=== PATIENT | female | born 1975 | race Caucasian/White ===

== ENCOUNTER 2020-05-04 21:17 | Emergency (ER) | payer MEDICARE, MEDICAID, SELFPAY ==
[2020-05-04] VITALS (10 sets, daily range): BP systolic 112–156; BP diastolic 55–84; PULSE 73–80; RESP 15–22; TEMP 36.5–36.6; O2SAT 96–100; BMI 52.4
--- NOTE | 2020-05-04 21:19 | XR_ITS ---
EXAMINATION: XR SHOULDER, RIGHT CLINICAL INFORMATION: Fall and shoulder injury. COMPARISON: None TECHNIQUE: AP external rotation, Grashey, scapular Y, and axillary views of the right shoulder. FINDINGS: There is anterior inferior dislocation of humeral head in relation to glenoid. No visible fracture seen. The AC joint and rest of the visualized bones are grossly unremarkable. XR/XR shoulder RT min 2V IMPRESSION: Anterior-inferior right shoulder dislocation. No evidence of fracture.
--- NOTE | 2020-05-04 21:33 | ED.EXTPRO ---
HPI - Extremity Problem General Chief complaint: Extremity Injury, Upper Stated complaint: shoulder injury Time Seen by Provider: 05/04/20 21:32 Source: patient Mode of arrival: EMS Limitations: no limitations History of Present Illness HPI Narrative: 45-year-old female her leg gave out and patient fell her right arm got caught in the swing felt a pop in her right shoulder, patient appears to be an right shoulder dislocation, patient appears very uncomfortable. MD Complaint: extremity pain ( Right shoulder pain) Onset (ago): hour(s) (1) Pain Consistency: constant Location: right and upper extremity ( CC shoulder) Severity scale (1-10): >10 Quality: aching Radiation: none Exacerbating factors: range of motion Associated symptoms: denies other symptoms Related Data Allergies Allergy/AdvReac Type Severity Reaction Status Date / Time latex [LATEX] Allergy Unknown HIVES Unverified 03/29/20 16:06 Sulfa (Sulfonamide Allergy Unknown HIVES Unverified 03/29/20 16:06 Antibiotics) [SULFA (SULFONAMIDE ANTIBIOTICS)] LATEX Allergy Unknown hives Uncoded 07/31/15 00:00 latex Allergy Unknown Uncoded 03/04/16 00:00 sulfa Allergy Unknown hives Uncoded 07/31/15 00:00 Review of Systems Review of Systems: all other systems are reviewed and are negative Constitutional: Reports as per HPI and Reports no additional constitutional complaints Eyes: Reports as per HPI and Reports no additional eye complaints Reports system reviewed and no additional complaints, except as documented Cardiovascular: Reports as per HPI and Reports no additional cardiovascular complaints Respiratory: Reports as per HPI and Reports no additional respiratory complaints Gastrointestinal: Reports as per HPI and Reports no additional gastrointestinal complaints Genitourinary: Reports no additional female genitourinary complaints Musculoskeletal: Reports no additional musculoskeletal complaints Skin/Breast: Reports system reviewed and no additional complaints, except as docu Psychiatric: Reports no additional psychiatric complaints Endocrine: Reports no additional endocrine complaints Hematologic/Lymphatic: Reports no additional hematologic/lymphatic complaints Allergic/Immunologic: Reports no additional allergic/immunologic complaints Reports system reviewed and no additional complaints, except as documented and Reports Abnormal speech present [facility] Past Medical History Medical History Bipolar 1 disorder Social History Social History Alcohol intake: never Smoking Status: Current every day smoker Use of substances other than those prescribed or required for medical reasons: No Physical Exam Vital Signs: Vital Signs: Vital Signs Temp Pulse Resp BP Pulse Ox 05/04/20 22:04 22 H 05/04/20 21:24 97.8 F 77 20 143/62 H 97 Body Mass Index 52.4 vital signs have been reviewed as normal and appeared to be correct. Blood pressure is slightly high probably secondary to pain.. Heart rate normal. Respiration rate normal. Temperature normal. Oxygen saturation normal. Appearance: Alert. Oriented X3. No acute distress. Head: Normal external exam. Normocephalic. Atraumatic. No Naranjo signs noted. No raccoon eyes noted Eyes: PERRLA. EOMI. Conjunctiva and sclera normal. Eyelids normal. ENT: EAC normal. TM's Normal. Pharynx normal. Uvula midline. Moist mucous membranes. No trismus noted. No drooling noted. No muffled voice noted. Neck: Normal inspection. Neck supple. FROM. No adenopathy. Thyroid Normal. No meningeal signs. No neck mass noted. CVS: Normal heart rate and rhythm. Heart sound normal. No murmurs noted. Pulses normal throughout. Respiratory: No respiratory distress. Painless inspiration. Breath sounds normal. No wheezes/rales/rhonchi noted. Chest nontender. No accessory muscle usage noted or decreased air movement noted. Abdomen: Soft and nontender. Bowel sounds normal in all 4 quadrants. No distention noted. No organomegaly noted. No visible injury noted. Back: No CVA tenderness. Full range of motion noted. Skin: Skin warm and dry. Normal skin color. Normal skin turgor. No rashes/lesions/lacerations noted. Extremities: Right shoulder held in abduction position with limited abduction, with fullness anteriorly, neurovascular exam is intact. Neuro: Oriented X 3. No motor deficit. No sensory deficit. Reflexes normal. Course Course Course Narrative: 45-year-old female status post mechanical fall and right shoulder dislocation as a result for ears Obtain x-ray, likely shoulder dislocation, will perform conscious sedation, and attempt to do right shoulder reduction. Procedures Orthopedic Joint Reduction Joint #1: Time Out Performed: Yes Side: right Joint Reduction Location: shoulder Analgesia: procedural sedation Amount of anesthesic used (mL): 20 Shoulder Technique Used (if applicable): traction/counter-traction Post-reduction neuro exam: intact Post-reduction vascular: intact Post Reduction X-Ray Obtained: Yes Post Reduction X-Ray Results: reduced Splint Applied: Yes Patient Tolerated Procedure: well Procedural Sedation Indication: fracture/dislocation reduction ( right shoulder dislocation) ASA Class: I Time of Last PO Intake: 18:00 Preparation: night monitor applied, pulse oximeter, capnometry used, supplemental O2 applied, suction/airway equipment at bedside and IV secured IV Propofol dose (mg): 20 Patient Tolerated Procedure: well and no complications Complications: none MDM - Extremity (Nontraumatic) MDM Narrative Medical decision making narrative: 45-year-old female otherwise healthy had a mechanical fall causing right shoulder dislocation, patient status post shoulder reduction (with multiple trial) with conscious sedation procedure used. patient was observed in the emergency department for 60 minutes post conscious sedation, patient remained stable, with stable vital signs. Critical Care Time Critical Care Time Critical Care Time: Yes Total Critical Care Time: 60 Attestation: I spent 60 minutes critical care level care for this patient, care was provided at bedtime for continuous cardiac monitoring for conscious sedation, and 3 attempts to reduce the right shoulder, check radiographic studies, recheck on the patient, with cardiac monitoring. Discharge Plan Discharge Clinical Impression: Dislocated shoulder Qualifiers: Encounter type: initial encounter Laterality: right Qualified Code(s): S43.004A - Unspecified dislocation of right shoulder joint, initial encounter Patient Disposition: Home, Self-Care Instructions: Shoulder Dislocation (ED) Referrals: Tyrone Rouse MD [Physician] - 10 days
--- NOTE | 2020-05-04 22:03 | XR_ITS ---
EXAMINATION: XR SHOULDER, RIGHT CLINICAL INFORMATION: Post reduction COMPARISON: Early right shoulder exam 9:24 PM TECHNIQUE: AP external rotation, Grashey, scapular Y, and axillary views of the right shoulder. FINDINGS: There is persistent Anterior inferior dislocation of humeral head in relation to glenoid. There is no visible fracture. The soft tissues are normal. The AC joint appears unremarkable XR/XR shoulder RT 1V IMPRESSION: No change in anterior inferior dislocation of right shoulder. No fracture seen
[2020-05-04] MEDS: Morphine Sulfate 4 MG/ML CARTRIDGE IVPUSH (22:04)
[2020-05-04] MEDS: propofoL 200 MG/20 ML VIAL 100 MG IVPUSH ×4 (22:04→23:08)
--- NOTE | 2020-05-04 22:28 | XR_ITS ---
EXAMINATION: XR SHOULDER, RIGHT CLINICAL INFORMATION: Status post reduction. COMPARISON: None TECHNIQUE: AP right shoulder 10:27 PM. AP right shoulder 10:36 PM. FINDINGS: AP right shoulder 10:27 PM. There is persistent anteroinferior dislocation right humeral head in relation to glenoid. No fracture seen. AP right shoulder 10:36 PM: Status post reduction of the glenohumeral joint space is in alignment. No fracture seen. There is mild periapical spurring of AC joint. The soft tissues are normal. XR/XR shoulder RT 1V IMPRESSION: Last right shoulder AP view reveals normal alignment of right glenohumeral joint status post reduction. No fracture seen. Mild degenerative arthritis right AC joint is noted.
--- NOTE | 2020-05-04 22:38 | XR_ITS ---
EXAMINATION: XR SHOULDER, RIGHT CLINICAL INFORMATION: Status post reduction. COMPARISON: None TECHNIQUE: AP right shoulder 10:27 PM. AP right shoulder 10:36 PM. FINDINGS: AP right shoulder 10:27 PM. There is persistent anteroinferior dislocation right humeral head in relation to glenoid. No fracture seen. AP right shoulder 10:36 PM: Status post reduction of the glenohumeral joint space is in alignment. No fracture seen. There is mild periapical spurring of AC joint. The soft tissues are normal. XR/XR shoulder RT 1V IMPRESSION: Last right shoulder AP view reveals normal alignment of right glenohumeral joint status post reduction. No fracture seen. Mild degenerative arthritis right AC joint is noted.
== END 2020-05-04 23:50 | disposition home or self-care (01) ==
LOC: HO.ED 05-05 00:38
PROVIDERS: Emergency Provider Emergency Medicine
DX: S43.004A Unspecified dislocation of right shoulder joint, initial encounter (principal); X50.1XXA Overexertion from prolonged static or awkward postures, initial encounter; Y93.89 Activity, other specified; Y92.830 Public park as the place of occurrence of the external cause; Y99.9 Unspecified external cause status
CPT/HCPCS: 23655; 73020; 73030; 96374; 96375; 96376; 99152; 99284; 99291; J2270

== ENCOUNTER → 2020-05-11 11:29 | Outpatient (BNVA) | payer MEDICARE, MEDICAID, SELFPAY | PROVIDERS: PCP Nurse Practitioner Family; Visit Provider Orthopaedic Surgery | DX: S43.004D Unspecified dislocation of right shoulder joint, subsequent encounter (principal) | CPT/HCPCS: 99202 ==

== ENCOUNTER → 2020-05-25 10:49 | Outpatient (BNVA) | payer MEDICARE, MEDICAID, SELFPAY | PROVIDERS: Visit Provider Orthopaedic Surgery | DX: S43.004D Unspecified dislocation of right shoulder joint, subsequent encounter (principal) | CPT/HCPCS: 99212 ==

== ENCOUNTER 2020-06-26 17:21 | Emergency (ER) | payer MEDICARE, MEDICAID, SELFPAY ==
[2020-06-26 17:26] VITALS: BP 157/88; PULSE 90; RESP 18; TEMP 36.7; O2SAT 95; BMI 52.6
[2020-06-26 17:40] LABS: MANUAL DIFF FLAG NO
[2020-06-26 17:53] LABS: Basophils Absolute Auto 0.1 X10*3/uL (0.0-0.2); Basophils Percent Auto 0.5 % (0-2); Eosinophils Absolute Auto 0.3 X10*3/uL (0.0-0.4); Eosinophils Percent Auto 2.5 % (0-4); Hemoglobin 10.6 g/dl (12.0-16.0); Imm Gran Abs Auto 0.05 X10*3/uL (0.00-0.03); Imm Gran Pct Auto 0.5 % (0.0-0.4); Lymphocytes Absolute Auto 2.7 X10*3/uL (1.2-4.9); Lymphocytes Percent Auto 27.2 % (20-40); Mean Corpuscular HGB Conc 31.2 g/dl (31.0-35.0); Mean Corpuscular Hemoglobin 27.9 pg (27.0-33.0); Mean Corpuscular Volume 89.5 fL (80-98); Mean Platelet Volume 9.3 fL (9.4-12.3); Monocytes Absolute Auto 0.6 X10*3/uL (0.1-1.2); Monocytes Percent Auto 6.3 % (2-11); Neutrophils Absolute Auto 6.3 X10*3/uL (2.0-8.3); Platelet Count 275 X10*3/uL (160-400); Red Cell Distribution Width 14.7 % (11.0-16.0); White Blood Count 9.9 X10*3/uL (4.8-10.8)
[2020-06-26 18:13] LABS: Anion Gap 10 (12-20); Blood Urea Nitrogen 11 mg/dL (9-16); Calcium 8.2 mg/dL (8.4-10.2); Carbon Dioxide 25 mmol/L (22-29); Chloride 107 mmol/L (96-108); Creatinine Clr Calc Pharmacy 146.5; Estimated Glomerular Filt Rate > 60; Glucose Random 109 mg/dL (60-115); Potassium 3.9 mmol/l (3.3-5.1); Sodium 138 mmol/L (135-145)
--- NOTE | 2020-06-26 19:05 | ED.SKABFB ---
HPI - Skin/Abscess/Foreign Bdy General Chief complaint: Skin/Abscess/Foreign Body Stated complaint: INFECTION IN LEG Time Seen by Provider: 06/26/20 19:05 Source: patient Mode of arrival: ambulatory Limitations: no limitations History of Present Illness HPI narrative: Patient with history of recurrent cellulitis left leg last 1 was few months ago came here for couple of days of redness getting worse now started seeping serous fluid, patient denies any fever/chills complaint: rash Onset (ago): day(s) (3-4days) Location: LLE Related Data Home Medications Medication Instructions Recorded Confirmed amitriptyline 75 mg tablet 75 mg PO DAILY 05/11/20 aripiprazole 2 mg tablet 2 mg PO DAILY 05/11/20 sertraline 100 mg tablet 100 mg PO DAILY 05/11/20 Previous Rx's Medication Instructions Recorded naproxen 500 mg tablet 500 mg PO BID #60 tab 05/16/20 oxycodone 5 mg tablet 5 mg PO Q12H PRN #14 tab 06/12/20 cephalexin [Keflex] 500 mg PO QID 10 Days #40 cap 06/26/20 doxycycline hyclate 100 mg PO BID 10 Days #20 tab 06/26/20 Allergies Allergy/AdvReac Type Severity Reaction Status Date / Time latex [LATEX] Allergy Unknown HIVES Unverified 03/29/20 16:06 Sulfa (Sulfonamide Allergy Unknown HIVES Unverified 03/29/20 16:06 Antibiotics) [SULFA (SULFONAMIDE ANTIBIOTICS)] LATEX Allergy Unknown hives Uncoded 07/31/15 00:00 latex Allergy Unknown Uncoded 03/04/16 00:00 sulfa Allergy Unknown hives Uncoded 07/31/15 00:00 Review of Systems Review of Systems: REVIEW OF SYSTEMS: Pertinent positives and negatives are stated above in the history. GEN: no fevers, chills, fatigue HEENT: no nasal congestion, sore throat, ear pain NEURO: no headache, dizziness, focal weakness PULM: no cough, shortness of breath CV: no chest pain, palpitations, LE edema ABD: no abdominal pain, nausea, vomiting, diarrhea : no dysuria, urgency, frequency SKIN: Erythema left leg ROS otherwise negative x 10 PMFSH Past Medical History Medical History Bipolar 1 disorder Surgical History History of elbow surgery History of foot surgery History of tubal ligation History of umbilical hernia repair Social History Social History Alcohol intake: never Smoking Status: Current every day smoker Advance Directives: No Advance Directives Information Provided: Yes Current occupational status: unemployed Current occupation: right handed Physical Exam Vital Signs: Vital Signs: Last Vital Signs Temp 98.1 F 06/26/20 17:26 Pulse 90 06/26/20 17:26 Resp 18 06/26/20 17:26 BP 157/88 H 06/26/20 17:26 Pulse Ox 95 06/26/20 17:26 Body Mass Index 52.6 Appearance: Alert. Oriented X3. No acute distress. Eyes: Pupils equal, round and reactive to light. ENT: Pharynx normal. Neck: Normal inspection. Neck supple. CVS: Normal heart rate and rhythm. Pulses normal. Respiratory: No respiratory distress. Breath sounds normal. Abdomen: Soft and nontender. Skin: Skin warm and dry. Normal skin color. Normal skin turgor. Extremities: No lower extremity edema. Good range of movement Neuro: Oriented X 3. No motor deficit. No sensory deficit. MDM - Skin/Abscess/Foreign Bdy Lab Data Result diagrams: 06/26/20 17:36 06/26/20 17:36 Labs: Lab Results 06/26/20 06/26/20 06/26/20 Range/Units 17:36 17:36 17:36 WBC 9.9 (4.8-10.8) X10*3/uL RBC 3.80 L (4.20-5.50) X10*6/uL Hgb 10.6 L (12.0-16.0) g/dl Hct 34.0 L (37-47) % MCV 89.5 (80-98) fL MCH 27.9 (27.0-33.0) pg MCHC 31.2 (31.0-35.0) g/dl RDW 14.7 (11.0-16.0) % Plt Count 275 (160-400) X10*3/uL MPV 9.3 L (9.4-12.3) fL Immature Gran % (Auto) 0.5 H (0.0-0.4) % Neut % (Auto) 63.0 (45-73) % Lymph % (Auto) 27.2 (20-40) % [place] % (Auto) 6.3 (2-11) % Eos % (Auto) 2.5 (0-4) % Baso % (Auto) 0.5 (0-2) % Lymph # (Auto) 2.7 (1.2-4.9) X10*3/uL [place] # (Auto) 0.6 (0.1-1.2) X10*3/uL Eos # (Auto) 0.3 (0.0-0.4) X10*3/uL Baso # (Auto) 0.1 (0.0-0.2) X10*3/uL Abs Immat Gran (auto) 0.05 H (0.00-0.03) X10*3/uL Absolute Neuts (auto) 6.3 (2.0-8.3) X10*3/uL Absolute Nucleated RBC 0.000 (0.0-0.012) X10*3/uL Nucleated RBC % (auto) 0.0 (0.0-0.2) /100WBC Hold Purple Top SEE NOTE Hold Blue Top SEE NOTE Sodium (135-145) mmol/L Potassium (3.3-5.1) mmol/l Chloride (96-108) mmol/L Carbon Dioxide (22-29) mmol/L Anion Gap (12-20) BUN (9-16) mg/dL Creatinine (0.5-1.4) mg/dL Estim Creat Clear Calc Estimated GFR Random Glucose (60-115) mg/dL Calcium (8.4-10.2) mg/dL 06/26/20 Range/Units 17:36 WBC (4.8-10.8) X10*3/uL RBC (4.20-5.50) X10*6/uL Hgb (12.0-16.0) g/dl Hct (37-47) % MCV (80-98) fL MCH (27.0-33.0) pg MCHC (31.0-35.0) g/dl RDW (11.0-16.0) % Plt Count (160-400) X10*3/uL MPV (9.4-12.3) fL Immature Gran % (Auto) (0.0-0.4) % Neut % (Auto) (45-73) % Lymph % (Auto) (20-40) % [place] % (Auto) (2-11) % Eos % (Auto) (0-4) % Baso % (Auto) (0-2) % Lymph # (Auto) (1.2-4.9) X10*3/uL [place] # (Auto) (0.1-1.2) X10*3/uL Eos # (Auto) (0.0-0.4) X10*3/uL Baso # (Auto) (0.0-0.2) X10*3/uL Abs Immat Gran (auto) (0.00-0.03) X10*3/uL Absolute Neuts (auto) (2.0-8.3) X10*3/uL Absolute Nucleated RBC (0.0-0.012) X10*3/uL Nucleated RBC % (auto) (0.0-0.2) /100WBC Hold Purple Top Hold Blue Top Sodium 138 (135-145) mmol/L Potassium 3.9 (3.3-5.1) mmol/l Chloride 107 (96-108) mmol/L Carbon Dioxide 25 (22-29) mmol/L Anion Gap 10 L (12-20) BUN 11 (9-16) mg/dL Creatinine 0.71 (0.5-1.4) mg/dL Estim Creat Clear Calc 146.5 Estimated GFR > 60 Random Glucose 109 (60-115) mg/dL Calcium 8.2 L (8.4-10.2) mg/dL Discharge Plan Discharge Clinical Impression: Cellulitis of left leg Patient Disposition: Home, Self-Care Instructions: Cellulitis (ED) Additional Instructions: Keep the left leg elevated and take antibiotic as prescribed Report to the ER if worsening of the redness/fever Prescriptions: New cephalexin [Keflex] 500 mg capsule 500 mg PO QID 10 Days Qty: 40 RF: 0 doxycycline hyclate 100 mg tablet 100 mg PO BID 10 Days Qty: 20 RF: 0 No Action naproxen [Naprosyn] 500 mg tablet 500 mg PO BID Qty: 60 RF: 2 oxycodone 5 mg tablet 5 mg PO Q12H PRN (Reason: pain) Qty: 14 RF: 0
[2020-06-26] MEDS: cephALEXin 500 MG CAPSULE PO (19:22)
== END 2020-06-26 19:25 | disposition home or self-care (01) ==
PROVIDERS: Emergency Provider Internal Medicine
DX: L03.116 Cellulitis of left lower limb (principal); F17.200 Nicotine dependence, unspecified, uncomplicated; Z71.6 Tobacco abuse counseling; Z79.899 Other long term (current) drug therapy
CPT/HCPCS: 36415; 80048; 85025; 99283

== ENCOUNTER 2020-07-03 17:28 | Emergency (ER) | payer MEDICARE, MEDICAID, SELFPAY ==
[2020-07-03 17:50] VITALS: BP 171/103; PULSE 97; RESP 16; TEMP 36.9; O2SAT 97; BMI 52.4
== END 2020-07-03 20:31 | disposition left against medical advice (07) ==
PROVIDERS: Emergency Provider Emergency Medicine
DX: M79.606 Pain in leg, unspecified (principal)
CPT/HCPCS: 99281; 99282

== ENCOUNTER 2020-07-06 17:12 | Inpatient (IN) | payer MEDICARE, MEDICAID, SELFPAY ==
[2020-07-06 17:32] VITALS: BP 132/74; PULSE 85; RESP 16; TEMP 37.2; O2SAT 96; BMI 52.4
--- NOTE | 2020-07-06 18:38 | ED.GENADULT ---
HPI - General Adult General Chief complaint: General Medical Stated complaint: ?Leg infection Time Seen by Provider: 07/06/20 18:38 Source: patient Mode of arrival: ambulatory Limitations: no limitations History of Present Illness HPI narrative: 45-year-old female with past medical history that is significant for obesity, bipolar disorder with history of recurrent lower extremity cellulitis and surgical history of elbow surgery, foot surgery, tubal ligation, abdominal umbilical hernia repair who presents with complaint of worsening redness to the lower extremities. States she was seen here June 26 and given 10 day course of antibiotics she started the day after still has 1 more day left however her redness and swelling/weeping are continue to progress and get worse and has chills. Denies any fever. No URI symptoms. Review of EMR she was seen here June 26 started on 10 day course of Keflex and doxycycline Onset (ago): day(s) Severity: moderate Quality: aching Treatments prior to arrival: none Related Data Home Medications Medication Instructions Recorded Confirmed amitriptyline 75 mg tablet 75 mg PO DAILY 05/11/20 aripiprazole 2 mg tablet 2 mg PO DAILY 05/11/20 sertraline 100 mg tablet 100 mg PO DAILY 05/11/20 naproxen [Naprosyn] 500 mg PO BID PRN 07/06/20 Previous Rx's Medication Instructions Recorded cephalexin [Keflex] 500 mg PO QID 10 Days #40 cap 06/26/20 doxycycline hyclate 100 mg PO BID 10 Days #20 tab 06/26/20 Allergies Allergy/AdvReac Type Severity Reaction Status Date / Time latex [LATEX] Allergy Unknown HIVES Unverified 03/29/20 16:06 Sulfa (Sulfonamide Allergy Unknown HIVES Unverified 03/29/20 16:06 Antibiotics) [SULFA (SULFONAMIDE ANTIBIOTICS)] LATEX Allergy Unknown hives Uncoded 07/31/15 00:00 latex Allergy Unknown Uncoded 03/04/16 00:00 sulfa Allergy Unknown hives Uncoded 07/31/15 00:00 Review of Systems Review of Systems: Constitutional: No Weight loss, No Fever, + Chills, No Night Sweats, No Fatigue, No Malaise ENT/Mouth: No Hearing loss, No Ear Pain, No Nasal Congestion, No Sinus Pain, No Hoarseness, No sore throat, No Rhinorrhea, No Swallowing Difficulty Eyes: No Eye Pain, No Swelling, No Redness, No Foreign Body, No Discharge, No Vision Changes Cardiovascular: No Chest Pain, No SOB, No Dyspnea on Exertion, No Orthopnea, No Edema, No Palpitations Respiratory: No Cough, No Sputum, No Wheezing, No Smoke Exposure, No Dyspnea Gastrointestinal: No Nausea, No Vomiting, No Diarrhea, No Constipation, No abdominal Pain Genitourinary: no irregular bleeding, No Dysuria, No Urinary Frequency, No Hematuria, No Urinary Incontinence, No Urgency, No Flank Pain Musculoskeletal: No joint pain, No Myalgias, No Joint Swelling Skin: as noted in HPI Neuro: No Weakness, No Numbness, No Paresthesias, No Loss of Consciousness, No Dizziness, No Headache Psych: No Social Issues Heme/Lymph: No Bruising, No Bleeding,No Lymphadenopathy Endocrine: No Polyuria, No Polydipsia, No Temperature Intolerance Yes all other systems are reviewed and are negative [facility], [facility] Past Medical History Medical History Bipolar 1 disorder Surgical History History of elbow surgery History of foot surgery History of tubal ligation History of umbilical hernia repair Social History Social History Alcohol intake: never Smoking Status: Current every day smoker Use of substances other than those prescribed or required for medical reasons: No Advance Directives: No Advance Directives Information Provided: Yes Current occupational status: unemployed Current occupation: right handed Physical Exam Vital Signs: Vital Signs: Last Vital Signs Temp 98.9 F 07/06/20 17:32 Pulse 85 07/06/20 17:32 Resp 16 07/06/20 17:32 BP 132/74 07/06/20 17:32 Pulse Ox 96 07/06/20 17:32 Body Mass Index 52.4 Reviewed Const: General: cooperative and healthy appearing; No acute distress or intoxicated appearing Nutritional Appearance: average body habitus Orientation/consciousness: patient oriented x3 HENMT: Head: Yes normal to inspection Ears: hearing grossly normal bilaterally Eyes: General: appearance normal, both eyes and all related structures Visual Elliott: normal visual elliott by confrontation Neck: Neck: Yes normal visual inspection and No tender Thyroid: Thyroid normal Chest: Chest palpation & inspection: normal inspection of the chest Resp: Effort & Inspection: normal respiratory effort Cardio: Jugular venous distension: no JVD Rate: regular rate Rhythm: regular rhythm Heart sounds: S1 normal heart sound present and S2 normal heart sound present GI: Inspection: Yes normal to inspection Percussion: Yes normal to percussion Auscultation: normal bowel sounds : General: Yes no CVA tenderness Back/Spine/Pelvis: Back: no CVA tenderness Skin: General skin exam: no rashes or lesions noted Neuro: General: patient oriented x3 Extrem: Other: General: Yes normal to inspection Course Course Course Narrative: In brief 45-year-old female with above history presenting with worsening redness to the bilateral lower extremities left worse than right seen here ten days ago started on Keflex/doxycycline 1 more day left symptoms seem to be getting worse with chills and redness now extending into the groin area. Lab work shows no leukocytosis afebrile, not tachycardic. Electrolytes with no significant derangement. Given the failed p.o. antibiotics plan for admission. Patient given dose of Vanco and Zosyn here. Bilateral lower extremity ultrasounds are pending. Case discussed with hospitalist for admission. Consultations Consultation #1: Dr. Gutierrez hospitalist Medical Decision Making Lab Data Result diagrams: 07/06/20 18:58 07/06/20 18:58 Labs: Lab Results 07/06/20 07/06/20 Range/Units 18:58 18:58 WBC 9.9 (4.8-10.8) X10*3/uL RBC 3.68 L (4.20-5.50) X10*6/uL Hgb 10.4 L (12.0-16.0) g/dl Hct 32.7 L (37-47) % MCV 88.9 (80-98) fL MCH 28.3 (27.0-33.0) pg MCHC 31.8 (31.0-35.0) g/dl RDW 14.6 (11.0-16.0) % Plt Count 250 (160-400) X10*3/uL MPV 9.1 L (9.4-12.3) fL Immature Gran % (Auto) 0.4 (0.0-0.4) % Neut % (Auto) 62.5 (45-73) % Lymph % (Auto) 26.0 (20-40) % [place] % (Auto) 6.8 (2-11) % Eos % (Auto) 3.8 (0-4) % Baso % (Auto) 0.5 (0-2) % Lymph # (Auto) 2.6 (1.2-4.9) X10*3/uL [place] # (Auto) 0.7 (0.1-1.2) X10*3/uL Eos # (Auto) 0.4 (0.0-0.4) X10*3/uL Baso # (Auto) 0.1 (0.0-0.2) X10*3/uL Abs Immat Gran (auto) 0.04 H (0.00-0.03) X10*3/uL Absolute Neuts (auto) 6.2 (2.0-8.3) X10*3/uL Absolute Nucleated RBC 0.000 (0.0-0.012) X10*3/uL Nucleated RBC % (auto) 0.0 (0.0-0.2) /100WBC Lactic Acid 1.0 (0.5-2.0) mmol/L Discharge Plan Discharge Clinical Impression: Cellulitis of both lower extremities, Chronic venous stasis dermatitis Patient Disposition: Admitted As Inpatient Prescriptions: No Action naproxen [Naprosyn] 500 mg tablet 500 mg PO BID PRN (Reason: Pain) RF: 0 cephalexin [Keflex] 500 mg capsule 500 mg PO QID 10 Days Qty: 40 RF: 0 doxycycline hyclate 100 mg tablet 100 mg PO BID 10 Days Qty: 20 RF: 0
--- NOTE | 2020-07-06 18:47 | US_ITS ---
EXAMINATION: US VENOUS ULTRASOUND WITH DOPPLER LOWER EXTREMITY, BILATERAL CLINICAL INFORMATION: Pain swelling redness COMPARISON: Prior venous ultrasound August 2015 TECHNIQUE: Ultrasound of the deep veins is performed from the hip to the calf with compression sonography and color and pulse Doppler assessment. Spectral analysis with color-flow imaging is performed. FINDINGS: RIGHT: There is normal venous compression and respiratory variation and augmented flow. The visualized common femoral vein, superficial femoral vein, profunda femoral vein, popliteal vein, and the trifurcation region shows no evidence of deep venous thrombosis. Peroneal vein not visualized There is no significant popliteal fossa cyst. LEFT: There is normal venous compression and respiratory variation and augmented flow. The visualized common femoral vein, superficial femoral vein, profunda femoral vein, popliteal vein, and the trifurcation region shows no evidence of deep venous thrombosis. Peroneal vein not visualized There is no significant popliteal fossa cyst. If the patient's symptoms persist, followup ultrasound in 5 days 7 days might be of value to exclude proximal propagation from a non-visualized calf vein. US/US venous duplex LE BI IMPRESSION: No DVT demonstrated in the right and left lower extremity.
[2020-07-06 19:07] LABS: MANUAL DIFF FLAG NO
[2020-07-06 19:11] LABS: Basophils Absolute Auto 0.1 X10*3/uL (0.0-0.2); Basophils Percent Auto 0.5 % (0-2); Eosinophils Absolute Auto 0.4 X10*3/uL (0.0-0.4); Eosinophils Percent Auto 3.8 % (0-4); Hematocrit 32.7 % (37-47); Hemoglobin 10.4 g/dl (12.0-16.0); Imm Gran Abs Auto 0.04 X10*3/uL (0.00-0.03); Imm Gran Pct Auto 0.4 % (0.0-0.4); Lymphocytes Absolute Auto 2.6 X10*3/uL (1.2-4.9); Mean Corpuscular HGB Conc 31.8 g/dl (31.0-35.0); Mean Corpuscular Hemoglobin 28.3 pg (27.0-33.0); Mean Corpuscular Volume 88.9 fL (80-98); Mean Platelet Volume 9.1 fL (9.4-12.3); Monocytes Absolute Auto 0.7 X10*3/uL (0.1-1.2); Monocytes Percent Auto 6.8 % (2-11); Neutrophils Absolute Auto 6.2 X10*3/uL (2.0-8.3); Neutrophils Percent Auto 62.5 % (45-73); Platelet Count 250 X10*3/uL (160-400); Red Blood Count 3.68 X10*6/uL (4.20-5.50); Red Cell Distribution Width 14.6 % (11.0-16.0); White Blood Count 9.9 X10*3/uL (4.8-10.8)
[2020-07-06 19:32] LABS: Alanine Aminotransferase 43 U/L (0-31); Albumin Level 3.5 g/dL (3.5-5.0); Alkaline Phosphatase 88 U/L (39-117); Anion Gap 11 (12-20); Aspartate Amino Transferase 30 U/L (5-31); Bilirubin Total 0.3 mg/dL (0.0-1.0); Blood Urea Nitrogen 11 mg/dL (9-16); Calcium 8.1 mg/dL (8.4-10.2); Carbon Dioxide 25 mmol/L (22-29); Chloride 102 mmol/L (96-108); Creatinine Clr Calc Pharmacy 148.2; Estimated Glomerular Filt Rate > 60; Glucose Random 102 mg/dL (60-115); Potassium 3.8 mmol/l (3.3-5.1); Sodium 134 mmol/L (135-145)
[2020-07-06 19:36] LABS: COVID-19 Test Negative (Negative)
[2020-07-06] MEDS: Piperacillin Sodium/Tazobactam 4.5 GM in 0.9 % Sodium Chloride 100 ML IV (19:50)
--- NOTE | 2020-07-06 20:23 | PC.NURSE ---
PT WAS TAKEN TO US VIA W/C AND HOSPITALIST IN TO SEE PT. PT WILL BE ADMITTED FOR IV ANTIBIOTIC THERAPY.
[2020-07-06 21:22] LABS: Glucose Urine UA NEG (NEG); Leukocyte Esterase Urine NEG (NEG); Nitrite Urine NEG (NEG); Specific Gravity - Urine >= 1.030 (1.005-1.025); Urine Blood 2+ (NEG); Urine Ketones NEG (NEG); Urine Protein NEG (NEG-TRACE)
[2020-07-06 21:23] LABS: Appearance Urine CLEAR; Color Urine YELLOW
[2020-07-06 21:30] LABS: Squamous Epithelial Cell Urine 1+ /LPF; WBC Urine 0 /HPF (0-4)
--- NOTE | 2020-07-06 21:33 | PC.NURSE ---
pt left tibia and fibula fx reduced at bedside per dr glover. analysis consultant and sugar tong place to left leg repeat imaging ordered.
[2020-07-06 21:46] VITALS: BP 135/74; PULSE 78; RESP 16; TEMP 37.2; O2SAT 95
[2020-07-06 23:03] VITALS: BP 169/78; PULSE 75; RESP 18; TEMP 36.4; O2SAT 95
[2020-07-06] MEDS: 0.9 % Sodium Chloride Flush 3 ML SYRINGE IVFLUSH (23:12)
[2020-07-06] MEDS: Enoxaparin Sodium 40 MG/0.4 ML SYRINGE SUBCUT (23:12)
[2020-07-07] VITALS (10 sets, daily range): BP systolic 119–165; BP diastolic 56–87; PULSE 60–81; RESP 18–20; TEMP 36.1–36.7; O2SAT 93–97; BMI 52.4
[2020-07-07 06:00] LABS: MANUAL DIFF FLAG NO
[2020-07-07 06:04] LABS: Basophils Percent Auto 0.5 % (0-2); Eosinophils Absolute Auto 0.4 X10*3/uL (0.0-0.4); Eosinophils Percent Auto 4.5 % (0-4); Hematocrit 32.6 % (37-47); Hemoglobin 10.2 g/dl (12.0-16.0); Imm Gran Abs Auto 0.03 X10*3/uL (0.00-0.03); Imm Gran Pct Auto 0.4 % (0.0-0.4); Lymphocytes Absolute Auto 1.8 X10*3/uL (1.2-4.9); Lymphocytes Percent Auto 23.6 % (20-40); Mean Corpuscular HGB Conc 31.3 g/dl (31.0-35.0); Mean Corpuscular Hemoglobin 27.9 pg (27.0-33.0); Mean Corpuscular Volume 89.1 fL (80-98); Mean Platelet Volume 9.4 fL (9.4-12.3); Monocytes Absolute Auto 0.6 X10*3/uL (0.1-1.2); Monocytes Percent Auto 7.8 % (2-11); Neutrophils Absolute Auto 4.9 X10*3/uL (2.0-8.3); Neutrophils Percent Auto 63.2 % (45-73); Platelet Count 256 X10*3/uL (160-400); Red Blood Count 3.66 X10*6/uL (4.20-5.50); Red Cell Distribution Width 14.5 % (11.0-16.0); White Blood Count 7.8 X10*3/uL (4.8-10.8)
[2020-07-07 06:30] LABS: Anion Gap 12 (12-20); Blood Urea Nitrogen 8 mg/dL (9-16); Carbon Dioxide 24 mmol/L (22-29); Chloride 106 mmol/L (96-108); Creatinine Clr Calc Pharmacy 164.7; Estimated Glomerular Filt Rate > 60; Glucose Random 102 mg/dL (60-115); Magnesium 2.1 mg/dL (1.6-2.6); Potassium 3.9 mmol/l (3.3-5.1); Sodium 138 mmol/L (135-145)
--- NOTE | 2020-07-07 07:08 | P.HPHOSP_ITS ---
History of Present Illness Date of Service: 07/06/20 Chief Complaint: left lower extremity cellulitis This is a 45-year-old female with no significant past medical history who presents to the hospital with lower extremity cellulitis. Patient has history of venous stasis and reports that recurrent cellulitis of the left extremity. Patient presented to the ED last week and was treated with Keflex and doxycycline by her PCP and took it for 5 days with her symptoms including swelling, pain, and redness of her lower extremity worsening. Patient reports that left leg started to become red swollen and painful and then the right followed. She denies any fever or chills, no abdominal pain nausea or vomiting, no chest pain, no shortness of breath, no cough, no urinary symptoms, no numbness tingling or weakness. No headache or change in vision On arrival to the ED patient had dynamic least stable with no significant abnormal vitals Labs are significant for WBC count of 7.8, hemoglobin of 10.2, sodium of 138, potassium 3.9, BUN of 8, creatinine of 0.63, UA that is positive for blood, otherwise negative, COVID-19 negative. Duplex is negative for DVT Past medical history: cellulitis, bipolar disorder, Past surgical history: Cholecystectomy, elbow and feet surgery, stem cell stimulus of the back Family history: Heart disease Social history: Comes from home, denies any tobacco alcohol or illicit drugs Review of Systems Review of Systems: Yes all other systems are reviewed and are negative [facility] Medical History Bipolar 1 disorder Surgical History History of elbow surgery History of foot surgery History of tubal ligation History of umbilical hernia repair Social History Household Members: Spouse Housing: Apartment Do you presently have visiting nurse or other home services: No Alcohol intake: never Smoking Status: Current every day smoker Tobacco Type: Cigarette Packs Per Day: 0.5 Cigarettes Per Day: 10.0 Years Smoked: 20 Smoked in Last 30 Days: Yes Patient Interested in Nicotine Replacement: No Patient Given Instructions on How to Stop Smoking: No Second Hand Smoke Exposure: Yes Use of substances other than those prescribed or required for medical reasons: No Currently Displaying Signs/Symptoms of Drug Intoxication Withdrawal: No Any prior treatment program specific to substance use: No Have you been hit, kicked, punched, or otherwise hurt by someone within the past year? If so, by whom?: No Do you feel safe in your current relationship?: Yes Is there a partner from a previous relationship who is making you feel unsafe now?: No Are you made to feel afraid or neglected: No Advance Directives: No Advance Directives Information Provided: Yes Do you have thoughts of harming others: None Do you have a plan to hurt others: No Plan Recently lost weight without trying: No Current occupational status: unemployed Current occupation: right handed Meds Allergies Allergy/AdvReac Type Severity Reaction Status Date / Time latex [LATEX] Allergy Unknown HIVES Unverified 03/29/20 16:06 Sulfa (Sulfonamide Allergy Unknown HIVES Unverified 03/29/20 16:06 Antibiotics) [SULFA (SULFONAMIDE ANTIBIOTICS)] LATEX Allergy Unknown hives Uncoded 07/31/15 00:00 latex Allergy Unknown Uncoded 03/04/16 00:00 sulfa Allergy Unknown hives Uncoded 07/31/15 00:00 Home Medications Medication Instructions Recorded Confirmed Type amitriptyline 75 mg tablet 75 mg PO DAILY 05/11/20 History aripiprazole 2 mg tablet 2 mg PO DAILY 05/11/20 History sertraline 100 mg tablet 100 mg PO DAILY 05/11/20 History naproxen [Naprosyn] 500 mg PO BID PRN 07/06/20 History Physical Exam Vital Signs and Narrative: Vital Signs: Last Vital Signs Temp 97.9 F 07/07/20 03:34 Pulse 73 07/07/20 03:34 Resp 18 07/07/20 04:00 BP 157/87 H 07/07/20 03:34 Pulse Ox 95 07/07/20 03:34 Body Mass Index 52.4 Const: General: cooperative and no acute distress Orientation/consciousness: patient oriented x3 Eyes: General: appearance normal, both eyes and all related structures Resp: Effort & Inspection: normal respiratory effort and able to speak in complete sentences Cardio: Rate: regular rate Rhythm: regular rhythm GI: Palpation (GI): Soft to palpation Auscultation: normal bowel sounds Skin: General skin exam: no rashes or lesions noted Neuro: General: patient oriented x3 Cognition (Neuro): normal cognition Extrem: Other: Bilateral lower extremity edema, tenderness, edema 2+, has minimal drainage General: Yes normal to inspection Results Labs CBC and Chem 7: 07/07/20 05:23 07/07/20 05:23 Labs: Laboratory Results - last 24 hr 07/06/20 07/06/20 07/06/20 18:58 18:58 18:58 MCV 88.9 MCH 28.3 MCHC 31.8 RDW 14.6 Plt Count 250 MPV 9.1 L Immature Gran % (Auto) 0.4 Neut % (Auto) 62.5 Lymph % (Auto) 26.0 [place] % (Auto) 6.8 Eos % (Auto) 3.8 Baso % (Auto) 0.5 Lymph # (Auto) 2.6 [place] # (Auto) 0.7 Eos # (Auto) 0.4 Baso # (Auto) 0.1 Abs Immat Gran (auto) 0.04 H Absolute Neuts (auto) 6.2 Absolute Nucleated RBC 0.000 Nucleated RBC % (auto) 0.0 Anion Gap 11 L Estim Creat Clear Calc 148.2 Estimated GFR > 60 Random Glucose 102 Lactic Acid 1.0 Calcium 8.1 L Magnesium Total Bilirubin 0.3 AST 30 ALT 43 H Alkaline Phosphatase 88 Total Protein 7.0 Albumin 3.5 Urine Color Urine Appearance Urine pH Ur Specific [place] Urine Protein Urine Glucose (UA) Urine Ketones Urine Blood Urine Nitrite Ur Leukocyte Esterase Urine RBC Urine WBC Ur Squamous Epith Cells Urine Bacteria COVID-19 (LISANDRO) COVID-19 Clin Com 07/06/20 07/06/20 07/07/20 19:10 21:16 05:23 MCV 89.1 MCH 27.9 MCHC 31.3 RDW 14.5 Plt Count 256 MPV 9.4 Immature Gran % (Auto) 0.4 Neut % (Auto) 63.2 Lymph % (Auto) 23.6 [place] % (Auto) 7.8 Eos % (Auto) 4.5 H Baso % (Auto) 0.5 Lymph # (Auto) 1.8 [place] # (Auto) 0.6 Eos # (Auto) 0.4 Baso # (Auto) 0.0 Abs Immat Gran (auto) 0.03 Absolute Neuts (auto) 4.9 Absolute Nucleated RBC 0.000 Nucleated RBC % (auto) 0.0 Anion Gap Estim Creat Clear Calc Estimated GFR Random Glucose Lactic Acid Calcium Magnesium Total Bilirubin AST ALT Alkaline Phosphatase Total Protein Albumin Urine Color YELLOW Urine Appearance CLEAR Urine pH 6.0 Ur Specific [place] >= 1.030 H Urine Protein NEG Urine Glucose (UA) NEG Urine Ketones NEG Urine Blood 2+ H Urine Nitrite NEG Ur Leukocyte Esterase NEG Urine RBC 15-29 H Urine WBC 0 Ur Squamous Epith Cells 1+ Urine Bacteria NONE COVID-19 (LISANDRO) Negative COVID-19 Clin Com See Note 07/07/20 05:23 MCV MCH MCHC RDW Plt Count MPV Immature Gran % (Auto) Neut % (Auto) Lymph % (Auto) [place] % (Auto) Eos % (Auto) Baso % (Auto) Lymph # (Auto) [place] # (Auto) Eos # (Auto) Baso # (Auto) Abs Immat Gran (auto) Absolute Neuts (auto) Absolute Nucleated RBC Nucleated RBC % (auto) Anion Gap 12 Estim Creat Clear Calc 164.7 Estimated GFR > 60 Random Glucose 102 Lactic Acid Calcium 8.0 L Magnesium 2.1 Total Bilirubin AST ALT Alkaline Phosphatase Total Protein Albumin Urine Color Urine Appearance Urine pH Ur Specific [place] Urine Protein Urine Glucose (UA) Urine Ketones Urine Blood Urine Nitrite Ur Leukocyte Esterase Urine RBC Urine WBC Ur Squamous Epith Cells Urine Bacteria COVID-19 ([facility]ANDRO) COVID-19 Clin Com Imaging Radiologist's Impressions: Impressions Venous Duplex 07/06/20 18:47 IMPRESSION: No DVT demonstrated in the right and left lower extremity. Assessment and Plan (1) Cellulitis of both lower extremities: Status: Acute (2) Chronic venous stasis dermatitis: Status: Acute 45-year-old female who presents to the hospital with cellulitis # lower extremity cellulitis - Left worse than the right - patient failed outpatient therapy with doxycycline and Keflex Plan: - will start on vancomycin - follow cultures # bipolar disorder - continue home medications DVT prophylaxis:lovenox
--- NOTE | 2020-07-07 07:22 | P.HPHOSP_ITS ---
History of Present Illness Date of Service: 07/07/20 [facility] Medical History (Updated 07/07/20 @ 07:14 by Bennie Gutierrez MD) Bipolar 1 disorder Surgical History History of elbow surgery History of foot surgery History of tubal ligation History of umbilical hernia repair Social History Household Members: Spouse Housing: Apartment Do you presently have visiting nurse or other home services: No Alcohol intake: never Smoking Status: Current every day smoker Tobacco Type: Cigarette Packs Per Day: 0.5 Cigarettes Per Day: 10.0 Years Smoked: 20 Smoked in Last 30 Days: Yes Patient Interested in Nicotine Replacement: No Patient Given Instructions on How to Stop Smoking: No Second Hand Smoke Exposure: Yes Use of substances other than those prescribed or required for medical reasons: No Currently Displaying Signs/Symptoms of Drug Intoxication Withdrawal: No Any prior treatment program specific to substance use: No Have you been hit, kicked, punched, or otherwise hurt by someone within the past year? If so, by whom?: No Do you feel safe in your current relationship?: Yes Is there a partner from a previous relationship who is making you feel unsafe now?: No Are you made to feel afraid or neglected: No Advance Directives: No Advance Directives Information Provided: Yes Do you have thoughts of harming others: None Do you have a plan to hurt others: No Plan Recently lost weight without trying: No Current occupational status: unemployed Current occupation: right handed Meds Allergies Allergy/AdvReac Type Severity Reaction Status Date / Time latex [LATEX] Allergy Unknown HIVES Unverified 03/29/20 16:06 Sulfa (Sulfonamide Allergy Unknown HIVES Unverified 03/29/20 16:06 Antibiotics) [SULFA (SULFONAMIDE ANTIBIOTICS)] LATEX Allergy Unknown hives Uncoded 07/31/15 00:00 latex Allergy Unknown Uncoded 03/04/16 00:00 sulfa Allergy Unknown hives Uncoded 07/31/15 00:00 Home Medications Medication Instructions Recorded Confirmed Type amitriptyline 75 mg tablet 75 mg PO DAILY 05/11/20 History aripiprazole 2 mg tablet 2 mg PO DAILY 05/11/20 History sertraline 100 mg tablet 100 mg PO DAILY 05/11/20 History naproxen [Naprosyn] 500 mg PO BID PRN 07/06/20 History Physical Exam Vital Signs and Narrative: Vital Signs: Last Vital Signs Temp 97.9 F 07/07/20 03:34 Pulse 73 07/07/20 03:34 Resp 18 07/07/20 04:00 BP 157/87 H 07/07/20 03:34 Pulse Ox 95 07/07/20 03:34 Body Mass Index 52.4 Results Labs CBC and Chem 7: 07/07/20 05:23 07/07/20 05:23 Labs: Laboratory Results - last 24 hr 07/06/20 07/06/20 07/06/20 18:58 18:58 18:58 MCV 88.9 MCH 28.3 MCHC 31.8 RDW 14.6 Plt Count 250 MPV 9.1 L Immature Gran % (Auto) 0.4 Neut % (Auto) 62.5 Lymph % (Auto) 26.0 [place] % (Auto) 6.8 Eos % (Auto) 3.8 Baso % (Auto) 0.5 Lymph # (Auto) 2.6 [place] # (Auto) 0.7 Eos # (Auto) 0.4 Baso # (Auto) 0.1 Abs Immat Gran (auto) 0.04 H Absolute Neuts (auto) 6.2 Absolute Nucleated RBC 0.000 Nucleated RBC % (auto) 0.0 Anion Gap 11 L Estim Creat Clear Calc 148.2 Estimated GFR > 60 Random Glucose 102 Lactic Acid 1.0 Calcium 8.1 L Magnesium Total Bilirubin 0.3 AST 30 ALT 43 H Alkaline Phosphatase 88 Total Protein 7.0 Albumin 3.5 Urine Color Urine Appearance Urine pH Ur Specific [place] Urine Protein Urine Glucose (UA) Urine Ketones Urine Blood Urine Nitrite Ur Leukocyte Esterase Urine RBC Urine WBC Ur Squamous Epith Cells Urine Bacteria COVID-19 ([facility]ANDRO) COVID-19 Clin Com 07/06/20 07/06/20 07/07/20 19:10 21:16 05:23 MCV 89.1 MCH 27.9 MCHC 31.3 RDW 14.5 Plt Count 256 MPV 9.4 Immature Gran % (Auto) 0.4 Neut % (Auto) 63.2 Lymph % (Auto) 23.6 [place] % (Auto) 7.8 Eos % (Auto) 4.5 H Baso % (Auto) 0.5 Lymph # (Auto) 1.8 [place] # (Auto) 0.6 Eos # (Auto) 0.4 Baso # (Auto) 0.0 Abs Immat Gran (auto) 0.03 Absolute Neuts (auto) 4.9 Absolute Nucleated RBC 0.000 Nucleated RBC % (auto) 0.0 Anion Gap Estim Creat Clear Calc Estimated GFR Random Glucose Lactic Acid Calcium Magnesium Total Bilirubin AST ALT Alkaline Phosphatase Total Protein Albumin Urine Color YELLOW Urine Appearance CLEAR Urine pH 6.0 Ur Specific [place] >= 1.030 H Urine Protein NEG Urine Glucose (UA) NEG Urine Ketones NEG Urine Blood 2+ H Urine Nitrite NEG Ur Leukocyte Esterase NEG Urine RBC 15-29 H Urine WBC 0 Ur Squamous Epith Cells 1+ Urine Bacteria NONE COVID-19 ([facility]ISANDRO) Negative COVID-19 Clin Com See Note 07/07/20 05:23 MCV MCH MCHC RDW Plt Count MPV Immature Gran % (Auto) Neut % (Auto) Lymph % (Auto) [place] % (Auto) Eos % (Auto) Baso % (Auto) Lymph # (Auto) [place] # (Auto) Eos # (Auto) Baso # (Auto) Abs Immat Gran (auto) Absolute Neuts (auto) Absolute Nucleated RBC Nucleated RBC % (auto) Anion Gap 12 Estim Creat Clear Calc 164.7 Estimated GFR > 60 Random Glucose 102 Lactic Acid Calcium 8.0 L Magnesium 2.1 Total Bilirubin AST ALT Alkaline Phosphatase Total Protein Albumin Urine Color Urine Appearance Urine pH Ur Specific [place] Urine Protein Urine Glucose (UA) Urine Ketones Urine Blood Urine Nitrite Ur Leukocyte Esterase Urine RBC Urine WBC Ur Squamous Epith Cells Urine Bacteria COVID-19 (LISANDRO) COVID-19 Clin Com Imaging Radiologist's Impressions: Impressions Venous Duplex 07/06/20 18:47 IMPRESSION: No DVT demonstrated in the right and left lower extremity.
[2020-07-07] MEDS: 0.9 % Sodium Chloride Flush 3 ML SYRINGE IVFLUSH ×3 (08:50→22:36)
--- NOTE | 2020-07-07 10:38 | MHC.CM.PN ---
Addendum entered by Linda Palacios 07/07/20 10:53: CORRECTION - PCP IS DR ONEILL OF [facility] Original Note: PATIENT LIVES WITH HER SPOUSE AND FRIENDS. SHE HAS NO DME OR VNA SERVICES IN THE HOME. PATIENT RELIES ON [facility] AND FRIENDS FOR TRANSPORT NEEDS. PCP IS DR VALENTIN OF [facility]. IMM 07/07 IN CHART
--- NOTE | 2020-07-07 15:13 | P.PNIM_ITS ---
Subjective Subjective Date of Service: 07/07/20 Interval History: the patient was seen and evaluated this morning Laying in bed, feels comfortable Denies any fever, chills or shortness of breath bilateral lower E redness and tenderness No reported other overnight events. Systemic review: No fever, chills or weakness No chest pain, palpitation No shortness of breath or coughing No abdominal pain, nausea or vomiting No urinary symptoms bilateral LE erythema Physical Exam Vital Signs: Vital Signs: Last Vital Signs Temp 97.2 F 07/07/20 12:00 Pulse 60 07/07/20 12:00 Resp 18 07/07/20 12:00 BP 165/78 H 07/07/20 12:00 Pulse Ox 96 07/07/20 12:00 Body Mass Index 52.4 Constitutional : Alert, oriented, not in distress Neck : Normal inspection, Supple Cardiovascular : RRR, S1 S2, no lower extremity edema Respiratory : Good bilateral air entry, no crackles, wheezes or rhonchi Gastrointestinal: soft, lax, Normal bowel sounds, Non tender Skin : Warm/Dry, bilateral lower extremity erythema, warmth and tenderness. Both feet with calluses and breakdown skin with signs of fungal infection. Neurological : Alert & oriented x3, No focal deficit Objective Data Current Medications Generic Name Dose Route Start Last Admin Trade Name Freq PRN Reason Stop Dose Admin Acetaminophen 650 mg 07/06/20 22:27 Acetaminophen 325 Mg Tablet PO Q6H PRN Pain, Mild (Pain Scale 1-3) Docusate Sodium 100 mg 07/06/20 22:27 Docusate Sodium 100 Mg Capsule PO DAILY PRN Constipation Enoxaparin Sodium 40 mg 07/06/20 23:00 07/06/20 23:12 Enoxaparin Sodium 40 Mg/0.4 Ml Syringe SUBCUT 40 mg Q24H AUBREE Administration Ondansetron HCl 4 mg 07/06/20 22:27 Ondansetron Hcl 4 Mg/2 Ml Vial IVPUSH Q8H PRN Nausea and Vomiting Pharmacy Consult 1 each 07/06/20 18:48 Consult Rx Perform Med Rec MISCELLANE ONCE PRN Consult order Pharmacy Consult 1 each 07/06/20 19:19 Consult Rx Vancomycin Dosing MISCELLANE DAILY PRN Consult order Pharmacy Consult 1 each 07/06/20 22:27 Consult Rx Vancomycin Dosing MISCELLANE DAILY PRN Consult order Sodium Chloride 3 ml 07/07/20 00:00 07/07/20 08:50 0.9 % Sodium Chloride Flush 3 Ml Syringe IVFLUSH 3 ml QSHIFT [facility] Administration Labs CBC & Chem 7: 07/07/20 05:23 07/07/20 05:23 Assessment and Plan (1) Cellulitis of both lower extremities: Status: Acute (2) Chronic venous stasis dermatitis: Status: Acute Assessment and Plan: 45-year-old female who presents to the hospital with cellulitis Bilateral lower extremity cellulitis Failed outpatient antibiotics Change antibiotic to clindamycin Q 8 To get ID evaluation Pending blood cultures Athlete foot Start clotrimazole cream Will need podiatry evaluation after discharge bipolar disorder continue home medications DVT prophylaxis lovenox
[2020-07-07] MEDS: Clindamycin Phosphate/D5W 600 MG/50 ML PIGGYBACK 100 MG IV ×2 (16:05→22:34)
--- NOTE | 2020-07-07 16:19 | W.PM.IDCN ---
History of Present Illness Data of Consult Service Date: 07/07/20 Requesting physician: Tyrese Mcdonald Primary Care Provider: Unknown Physician HPI Reason for consult: bilateral leg redness She presents with bilateral leg redness swelling an heat for two weeks She has no fever She was given Keflex and Doxycycline and elevation on 06/26 with no improvement She has been started on IV Clindamycin 600 mg tid She has had cellulitis before Review of Systems Musculoskeletal: Comments: red legs PMFSH Past Medical History Medical History Bipolar 1 disorder Surgical History Surgical History History of elbow surgery History of foot surgery History of tubal ligation History of umbilical hernia repair Social History Social History Household Members: Spouse Housing: Apartment Do you presently have visiting nurse or other home services: No Alcohol intake: never Smoking Status: Current every day smoker Tobacco Type: Cigarette Packs Per Day: 0.5 Cigarettes Per Day: 10.0 Years Smoked: 20 Smoked in Last 30 Days: Yes Patient Interested in Nicotine Replacement: No Patient Given Instructions on How to Stop Smoking: No Second Hand Smoke Exposure: Yes Use of substances other than those prescribed or required for medical reasons: No Currently Displaying Signs/Symptoms of Drug Intoxication Withdrawal: No Any prior treatment program specific to substance use: No Have you been hit, kicked, punched, or otherwise hurt by someone within the past year? If so, by whom?: No Do you feel safe in your current relationship?: Yes Is there a partner from a previous relationship who is making you feel unsafe now?: No Are you made to feel afraid or neglected: No Advance Directives: No Advance Directives Information Provided: Yes Do you have thoughts of harming others: None Do you have a plan to hurt others: No Plan Recently lost weight without trying: No service: No Current occupational status: unemployed Current occupation: right handed Meds Allergies Allergy/AdvReac Type Severity Reaction Status Date / Time latex [LATEX] Allergy Unknown HIVES Unverified 03/29/20 16:06 Sulfa (Sulfonamide Allergy Unknown HIVES Unverified 03/29/20 16:06 Antibiotics) [SULFA (SULFONAMIDE ANTIBIOTICS)] LATEX Allergy Unknown hives Uncoded 07/31/15 00:00 latex Allergy Unknown Uncoded 03/04/16 00:00 sulfa Allergy Unknown hives Uncoded 07/31/15 00:00 Home Medications Medication Instructions Recorded Confirmed Type amitriptyline 75 mg tablet 75 mg PO DAILY 05/11/20 History aripiprazole 2 mg tablet 2 mg PO DAILY 05/11/20 History sertraline 100 mg tablet 100 mg PO DAILY 05/11/20 History naproxen [Naprosyn] 500 mg PO BID PRN 07/06/20 History Physical Exam Vital Signs: Vital Signs: Last Vital Signs Temp 96.9 F 07/07/20 15:58 Pulse 70 07/07/20 15:58 Resp 18 07/07/20 15:58 BP 147/81 H 07/07/20 15:58 Pulse Ox 97 07/07/20 15:58 Body Mass Index 52.4 Const: General: cooperative HENMT: Head: Yes normal to inspection Mouth: Normal oral and palatal mucosa present Eyes: General: appearance normal, both eyes and all related structures Resp: Effort & Inspection: normal respiratory effort Cardio: Rate: regular rate Rhythm: regular rhythm GI: Palpation (GI): nontender : General: Yes no CVA tenderness Back/Spine/Pelvis: Back: no CVA tenderness Skin: Other: bilateral leg redness,improved Extrem: Other: bilateral leg redness improved Assessment and Plan (1) Cellulitis of both lower extremities: Problem details: Probable venous stasis problems She has scaly feet,possible tinea pedis problem,staph ,strep Looks better than picture on admission Status: Acute Agree with Clindamycin Change to po 430 mg tid on discharge for a week Lotrimin to feet [place] to legs (2) Chronic venous stasis dermatitis: Status: Acute Results Labs CBC & Chem 7: 07/07/20 05:23 07/07/20 05:23 Labs: Short CBC 07/06/20 07/07/20 Range/Units 18:58 05:23 WBC 9.9 7.8 (4.8-10.8) X10*3/uL Hgb 10.4 L 10.2 L (12.0-16.0) g/dl Hct 32.7 L 32.6 L (37-47) % Plt Count 250 256 (160-400) X10*3/uL BMP 07/06/20 07/07/20 18:58 05:23 Sodium 134 L 138 Potassium 3.8 3.9 Chloride 102 106 Carbon Dioxide 25 24 BUN 11 8 L Creatinine 0.70 0.63 Calcium 8.1 L 8.0 L Liver Function 07/06/20 Range/Units 18:58 Total Bilirubin 0.3 (0.0-1.0) mg/dL AST 30 (5-31) U/L ALT 43 H (0-31) U/L Alkaline Phosphatase 88 (39-117) U/L Albumin 3.5 (3.5-5.0) g/dL Urine 07/06/20 Range/Units 21:16 Urine Color YELLOW Urine Appearance CLEAR Urine pH 6.0 (5.0-8.0) Ur Specific [place] >= 1.030 H (1.005-1.025) Urine Protein NEG (NEG-TRACE) MG/DL Urine Glucose (UA) NEG (NEG) MG/DL
[2020-07-07] MEDS: Clotrimazole 1 % Cream 15 GM TUBE 1 APPL TOPICAL ×2 (16:46→21:10)
[2020-07-07] MEDS: Betamethasone Dip Aug 0.05% Cr 15 GM TUBE 1 APPL TOPICAL (21:10)
[2020-07-07 21:55] LABS: Vancomycin Trough 4.9 mcg/mL (10.0-20.0)
[2020-07-07] MEDS: Enoxaparin Sodium 40 MG/0.4 ML SYRINGE SUBCUT (22:34)
[2020-07-08 03:37] VITALS: BP 152/64; PULSE 78; RESP 20; TEMP 36.5; O2SAT 96
[2020-07-08 07:18] LABS: Hematocrit 33.8 % (37-47); Hemoglobin 10.6 g/dl (12.0-16.0); Mean Corpuscular HGB Conc 31.4 g/dl (31.0-35.0); Mean Corpuscular Hemoglobin 27.8 pg (27.0-33.0); Mean Corpuscular Volume 88.7 fL (80-98); Mean Platelet Volume 9.5 fL (9.4-12.3); Platelet Count 259 X10*3/uL (160-400); Red Blood Count 3.81 X10*6/uL (4.20-5.50); Red Cell Distribution Width 14.5 % (11.0-16.0); White Blood Count 7.9 X10*3/uL (4.8-10.8)
[2020-07-08] MEDS: Clindamycin Phosphate/D5W 600 MG/50 ML PIGGYBACK 100 MG IV ×3 (07:35→23:23)
[2020-07-08] MEDS: 0.9 % Sodium Chloride Flush 3 ML SYRINGE IVFLUSH ×2 (07:35→16:53)
[2020-07-08 08:00] VITALS: BP 149/69; PULSE 70; RESP 18; TEMP 36.7; O2SAT 96
[2020-07-08 09:18] LABS: Anion Gap 10 (12-20); Blood Urea Nitrogen 6 mg/dL (9-16); Calcium 8.2 mg/dL (8.4-10.2); Carbon Dioxide 26 mmol/L (22-29); Chloride 106 mmol/L (96-108); Creatinine Clr Calc Pharmacy 167.4; Estimated Glomerular Filt Rate > 60; Glucose Random 112 mg/dL (60-115); Potassium 3.6 mmol/l (3.3-5.1); Sodium 138 mmol/L (135-145)
[2020-07-08] MEDS: Betamethasone Dip Aug 0.05% Cr 15 GM TUBE 1 APPL TOPICAL ×2 (10:07→21:27)
[2020-07-08] MEDS: Clotrimazole 1 % Cream 15 GM TUBE 1 APPL TOPICAL ×2 (10:07→21:26)
[2020-07-08 12:00] VITALS: BP 166/95; PULSE 68; RESP 18; TEMP 36.6; O2SAT 95
[2020-07-08] MEDS: Furosemide 20 MG/2 ML VIAL IVPUSH (12:06)
[2020-07-08] MEDS: Sertraline HCL 100 MG TABLET PO (12:06)
--- NOTE | 2020-07-08 12:25 | HO.PM.IMPN ---
Subjective Subjective Date of Service: 07/08/20 Interval History: the patient was seen and evaluated this morning Laying in bed, feels comfortable Denies any fever, chills or shortness of breath Erythema and tenderness decrease in lower extremities No reported other overnight events. Systemic review: No fever, chills or weakness No chest pain, palpitation No shortness of breath or coughing No abdominal pain, nausea or vomiting No urinary symptoms Bilateral lower extremity erythema and tenderness Physical Exam Vital Signs: Vital Signs: Last Vital Signs Temp 97.9 F 07/08/20 12:00 Pulse 68 07/08/20 12:00 Resp 18 07/08/20 12:00 BP 166/95 H 07/08/20 12:00 Pulse Ox 95 07/08/20 12:00 Body Mass Index 52.4 Constitutional : Alert, oriented, not in distress Neck : Normal inspection, Supple Cardiovascular : RRR, S1 S2, +1 lower extremity edema bilaterally Respiratory : Good bilateral air entry, no crackles, wheezes or rhonchi Gastrointestinal: soft, lax, Normal bowel sounds, Non tender Skin : Warm/Dry, No rash, Bilateral lower extremity erythema and tenderness Neurological : Alert & oriented x3, No focal deficit Objective Data Current Medications Generic Name Dose Route Start Last Admin Trade Name Freq PRN Reason Stop Dose Admin Acetaminophen 650 mg 07/06/20 22:27 Acetaminophen 325 Mg Tablet PO Q6H PRN Pain, Mild (Pain Scale 1-3) Amitriptyline HCl 75 mg 07/08/20 21:00 Amitriptyline Hcl 25 Mg Tablet PO BEDTIME AUBREE Betamethasone Dipropion Augmented 1 appl 07/07/20 21:00 07/08/20 10:07 Betamethasone Dip Aug 0.05% Cr 15 Gm Tube TOPICAL 1 appl BID AUBREE Administration Protocol Clotrimazole 1 appl 07/07/20 15:20 07/08/20 10:07 Clotrimazole 1 % Cream 15 Gm Tube TOPICAL 1 appl BID AUBREE Administration Docusate Sodium 100 mg 07/06/20 22:27 Docusate Sodium 100 Mg Capsule PO DAILY PRN Constipation Enoxaparin Sodium 40 mg 07/06/20 23:00 07/07/20 22:34 Enoxaparin Sodium 40 Mg/0.4 Ml Syringe SUBCUT 40 mg Q24H AUBREE Administration Furosemide 20 mg 07/08/20 10:50 07/08/20 12:06 Furosemide 20 Mg/2 Ml Vial IVPUSH 20 mg DAILY AUBREE Administration Protocol Clindamycin Phosphate 600 mg in 50 mls @ 100 mls/hr 07/07/20 15:15 07/08/20 09:02 Cleocin IV Infused Q8H AURBEE Infusion Ondansetron HCl 4 mg 07/06/20 22:27 Ondansetron Hcl 4 Mg/2 Ml Vial IVPUSH Q8H PRN Nausea and Vomiting Pharmacy Consult 1 each 07/06/20 18:48 Consult Rx Perform Med Rec MISCELLANE ONCE PRN Consult order Pharmacy Consult 1 each 07/06/20 19:19 Consult Rx Vancomycin Dosing MISCELLANE DAILY PRN Consult order Pharmacy Consult 1 each 07/06/20 22:27 Consult Rx Vancomycin Dosing MISCELLANE DAILY PRN Consult order Sertraline HCl 100 mg 07/08/20 10:50 07/08/20 12:06 Sertraline Hcl 100 Mg Tablet PO 100 mg DAILY AUBREE Administration Sodium Chloride 3 ml 07/07/20 00:00 07/08/20 07:35 0.9 % Sodium Chloride Flush 3 Ml Syringe IVFLUSH 3 ml QSHIFT AUBREE Administration Labs CBC & Chem 7: 07/08/20 06:51 07/08/20 06:51 Microbiology Microbiology Results: Microbiology 07/06/20 19:01 Blood - Venous Blood Culture - Preliminary No growth after 24 hours. 07/06/20 19:01 Blood - Venous Blood Culture - Preliminary No growth after 24 hours. Assessment and Plan (1) Cellulitis of both lower extremities: Status: Acute (2) Chronic venous stasis dermatitis: Status: Acute Assessment and Plan: 45-year-old female who presents to the hospital with cellulitis Bilateral lower extremity cellulitis Failed outpatient antibiotics Change antibiotic to clindamycin Q 8 Id input appreciated Pending blood cultures Athlete foot Start clotrimazole cream Will need podiatry evaluation after discharge Fluid overload Has lower extremities edema likely result of venous stasis Start IV Lasix Monitor intake and output bipolar disorder continue home medications DVT prophylaxis lovenox
[2020-07-08 16:00] VITALS: BP 159/89; PULSE 79; RESP 20; TEMP 36.8; O2SAT 100
[2020-07-08 19:27] VITALS: BP 158/58; PULSE 87; RESP 18; TEMP 36.8; O2SAT 100
[2020-07-08] MEDS: Amitriptyline HCl 25 MG TABLET 75 MG PO (21:26)
[2020-07-08] MEDS: Enoxaparin Sodium 40 MG/0.4 ML SYRINGE SUBCUT (23:22)
[2020-07-09] VITALS: BP 126/57; PULSE 72; RESP 18; TEMP 36.1; O2SAT 95
[2020-07-09] MEDS: 0.9 % Sodium Chloride Flush 3 ML SYRINGE IVFLUSH ×2 (00:10→07:19)
[2020-07-09 04:00] VITALS: BP 124/55; PULSE 75; RESP 18; TEMP 36.7; O2SAT 99
[2020-07-09] MEDS: Clindamycin Phosphate/D5W 600 MG/50 ML PIGGYBACK 100 MG IV (06:28)
[2020-07-09 06:57] LABS: Anion Gap 12 (12-20); Blood Urea Nitrogen 6 mg/dL (9-16); Calcium 8.4 mg/dL (8.4-10.2); Carbon Dioxide 25 mmol/L (22-29); Chloride 107 mmol/L (96-108); Creatinine Clr Calc Pharmacy 164.7; Estimated Glomerular Filt Rate > 60; Glucose Random 108 mg/dL (60-115); Potassium 3.7 mmol/l (3.3-5.1); Sodium 140 mmol/L (135-145)
[2020-07-09 08:00] VITALS: BP 150/87; PULSE 63; RESP 18; TEMP 36.4; O2SAT 96
[2020-07-09] MEDS: Furosemide 20 MG/2 ML VIAL IVPUSH (09:37)
[2020-07-09] MEDS: Sertraline HCL 100 MG TABLET PO (09:38)
[2020-07-09] MEDS: Betamethasone Dip Aug 0.05% Cr 15 GM TUBE 1 APPL TOPICAL (09:38)
[2020-07-09] MEDS: Clotrimazole 1 % Cream 15 GM TUBE 1 APPL TOPICAL (09:38)
--- NOTE | 2020-07-09 11:14 | P.CDIC_ITS ---
CDI Concurrent Query Service Date: 07/09/20 Documentation Clarification: Please clarify if you are treating a proba ble/suspected/likely or confirmed: Body mass index: Morbid obesity Please specify if known Provider Response: Morbid Obesity PLEASE DO NOT DELETE/MODIFY EXISTING CONTENT Additional information is needed in order to code to the highest accuracy and appropriate Severity of Illness (SOI). Please clarify the information noted below in your progress notes and discharge summary. Risk Factors/Clinical Indicators/Treatments Body mass index: 52.5 CDS: Audra Davies [facility], CDIS Contact Number: [phone] Please Review the information above and exercise your independent professional judgment in responding to the query. If you concur, pleas document in the PROGRESS NOTES and DISCHARGE SUMMARY. If you do not agree with the query, please document in the query above. THIS QUERY IS PART OF THE PERMANENT MEDICAL RECORD
--- NOTE | 2020-07-09 11:33 | MHC.CM.PN ---
IMM 07/09, PT DISCHARGING HOME SELF-CARE, CALLED [facility] TO TRANSPORT PATIENT, PATIENT REPORTS USING WALKER HERE IN HOSPITAL AND HAS NO DME AT HOME, PATIENT REPORTS SHE CAN OBTAIN CANE ONCE HOME.
--- NOTE | 2020-07-09 16:02 | PM.DS ---
DS: Providers Provider Date of admission: 07/06/20 20:52 Primary care physician: Unknown Physician Consults: 07/07/20 15:13 Consult to Infectious Diseases Routine Consulting Provider: Felisa Courtney Reason for consultation: Bilateral LE recurrent cellulitis, for your kind eval. DS: Diagnosis Discharge Diagnosis (1) Cellulitis of both lower extremities: Status: Acute (2) Chronic venous stasis dermatitis: Status: Acute (3) Morbid obesity: Status: Acute (4) Tinea pedis of both feet: Status: Acute DS: Medications Discharge Medications Home Medications: Home Medications Medication Instructions Recorded Confirmed amitriptyline 75 mg tablet 75 mg PO DAILY 05/11/20 07/08/20 sertraline 100 mg tablet 100 mg PO DAILY 05/11/20 07/08/20 aripiprazole 10 mg DAILY 07/08/20 07/08/20 Previous Rx's Medication Instructions Recorded betamethasone, augmented 1 appl TOPICAL BID 10 Days g 07/09/20 clindamycin HCl 450 mg PO TID #63 cap 07/09/20 clotrimazole 1 appl TOPICAL BID 10 Days g 07/09/20 DS: Summary Hospital Course Hospital Course: Admission note HPI This is a 45-year-old female with no significant past medical history who presents to the hospital with lower extremity cellulitis. Patient has history of venous stasis and reports that recurrent cellulitis of the left extremity. Patient presented to the ED last week and was treated with Keflex and doxycycline by her PCP and took it for 5 days with her symptoms including swelling, pain, and redness of her lower extremity worsening. Patient reports that left leg started to become red swollen and painful and then the right followed. She denies any fever or chills, no abdominal pain nausea or vomiting, no chest pain, no shortness of breath, no cough, no urinary symptoms, no numbness tingling or weakness. No headache or change in vision On arrival to the ED patient had dynamic least stable with no significant abnormal vitals Labs are significant for WBC count of 7.8, hemoglobin of 10.2, sodium of 138, potassium 3.9, BUN of 8, creatinine of 0.63, UA that is positive for blood, otherwise negative, COVID-19 negative. Duplex is negative for DVT Hospital course The patient was admitted to the hospital for evaluation of bilateral lower extremities erythema, redness and tenderness. A Doppler ultrasound was done in the emergency rolling out DVTs. She was admitted for treatment of cellulitis of lower extremities, stasis dermatitis and bilateral athlete foot with calluses. She was started primarily on vancomycin which was changed to clindamycin with good response over the course of hospital stay as the erythema and tenderness improved significantly and the patient was able to ambulate freely with no reported pain in her legs. She was treated also with anti fungal cream for her feet and cortisone cream for the stasis dermatitis. Evaluated by infectious disease specialist who recommended to finish 7 more days of oral clindamycin at time of discharge. She was treated as well for fluid overload with IV Lasix with good response as swelling in her lower extremities improved. To follow-up with PCP after finishing antibiotic treatment. Time Spent with Patient Time attestation: Total time spent providing and/or coordinating discharge services: Physical Exam Vital Signs: Vital Signs: Last Vital Signs Temp 97.5 F 07/09/20 08:00 Pulse 63 07/09/20 08:00 Resp 18 07/09/20 08:00 BP 150/87 H 07/09/20 08:00 Pulse Ox 96 07/09/20 08:00 Body Mass Index 52.4 Constitutional : Alert, oriented, not in distress Neck : Normal inspection, Supple Cardiovascular : RRR, S1 S2, +1 lower extremity edema bilaterally Respiratory : Good bilateral air entry, no crackles, wheezes or rhonchi Gastrointestinal: soft, lax, Normal bowel sounds, Non tender Skin : Warm/Dry, Bilateral lower extremity significantly improved erythema with no tenderness Neurological : Alert & oriented x3, No focal deficit DS: Data Data Completed and Pending Labs on day of discharge: 07/06/20 18:47 IV insert/maintain .Now US venous duplex LE BI Stat 07/06/20 18:48 Consult Rx Perform Med Rec 1 each MISCELLANE ONCE PRN 07/06/20 18:58 Complete Blood Count Auto Diff Stat Comprehensive Met. Panel Stat Lactic Acid Stat 07/06/20 19:10 COVID-19 ID NOW (Sesay) Stat 07/06/20 19:19 Consult Rx Vancomycin Dosing 1 each MISCELLANE DAILY PRN Piperacillin Sodium/Tazobactam [Zosyn] 4.5 gm 0.9 % Sodium Chloride [Ns] 100 ml IV ONCE vancomycin HCL 750 mg vancomycin HCL 500 mg 0.9 % Sodium Chloride [Ns] 250 ml IV ONCE 07/06/20 19:30 Piperacillin Sodium/Tazobactam [Zosyn] 4.5 gm IV .STK-MED ONE vancomycin HCL 500 mg IV .STK-MED ONE vancomycin HCL 750 mg IV .STK-MED ONE 07/06/20 20:47 Code Status Routine Transfer Order Routine 07/06/20 22:27 Acetaminophen [Tylenol] 650 mg PO Q6H PRN Consult Rx Vancomycin Dosing 1 each MISCELLANE DAILY PRN Docusate Sodium [Colace] 100 mg PO DAILY PRN ondansetron HCL [Zofran] 4 mg IVPUSH Q8H PRN 07/06/20 22:27 Ambulate QSHIFT WHILE AWAKE IV insert/maintain QSHIFT Intake and Output Q8HR Vital Signs Q4HR 07/06/20 23:00 Enoxaparin Sodium [Lovenox] 40 mg SUBCUT Q24H 07/07/20 00:00 0.9 % Sodium Chloride Flush [NS Flush] 3 ml IVFLUSH QSHIFT 07/07/20 05:23 Basic Metabolic Panel Routine Complete Blood Count Auto Diff Routine Magnesium Routine 07/07/20 06:00 vancomycin HCL 750 mg vancomycin HCL 500 mg 0.9 % Sodium Chloride [Ns] 250 ml IV Q8H 07/07/20 15:15 Clindamycin Phosphate/D5W [Cleocin] 600 mg in 50 ml IV Q8H 07/07/20 15:20 Clotrimazole 1 % Cream [Lotrimin 1 % Cream] 1 appl TOPICAL BID 07/07/20 21:00 Betamethasone Dip Aug 0.05% Cr [Diprolene AF 0.05% Cr] 1 appl TOPICAL BID Clotrimazole 1 % Cream [Lotrimin 1 % Cream] 1 appl TOPICAL BID 07/07/20 21:06 Vancomycin Trough Routine 07/08/20 06:51 Basic Metabolic Panel DAILY@0600 Complete Blood Count no Diff DAILY@0600 07/08/20 10:50 Furosemide [Lasix] 20 mg IVPUSH DAILY Sertraline HCL [Zoloft] 100 mg PO DAILY 07/08/20 21:00 Amitriptyline HCl [Elavil] 75 mg PO BEDTIME 07/09/20 05:48 Basic Metabolic Panel DAILY@0600 Laboratory Last Values WBC 7.9 X10*3/uL (4.8-10.8) 07/08/20 06:51 RBC 3.81 X10*6/uL (4.20-5.50) L 07/08/20 06:51 Hgb 10.6 g/dl (12.0-16.0) L 07/08/20 06:51 Hct 33.8 % (37-47) L 07/08/20 06:51 MCV 88.7 fL (80-98) 07/08/20 06:51 MCH 27.8 pg (27.0-33.0) 07/08/20 06:51 MCHC 31.4 g/dl (31.0-35.0) 07/08/20 06:51 RDW 14.5 % (11.0-16.0) 07/08/20 06:51 Plt Count 259 X10*3/uL (160-400) 07/08/20 06:51 MPV 9.5 fL (9.4-12.3) 07/08/20 06:51 Immature Gran % (Auto) 0.4 % (0.0-0.4) 07/07/20 05:23 Neut % (Auto) 63.2 % (45-73) 07/07/20 05:23 Lymph % (Auto) 23.6 % (20-40) 07/07/20 05:23 [place] % (Auto) 7.8 % (2-11) 07/07/20 05:23 Eos % (Auto) 4.5 % (0-4) H 07/07/20 05:23 Baso % (Auto) 0.5 % (0-2) 07/07/20 05:23 Lymph # (Auto) 1.8 X10*3/uL (1.2-4.9) 07/07/20 05:23 [place] # (Auto) 0.6 X10*3/uL (0.1-1.2) 07/07/20 05:23 Eos # (Auto) 0.4 X10*3/uL (0.0-0.4) 07/07/20 05:23 Baso # (Auto) 0.0 X10*3/uL (0.0-0.2) 07/07/20 05:23 Abs Immat Gran (auto) 0.03 X10*3/uL (0.00-0.03) 07/07/20 05:23 Absolute Neuts (auto) 4.9 X10*3/uL (2.0-8.3) 07/07/20 05:23 Absolute Nucleated RBC 0.000 X10*3/uL (0.0-0.012) 07/08/20 06:51 Nucleated RBC % (auto) 0.0 /100WBC (0.0-0.2) 07/08/20 06:51 Sodium 140 mmol/L (135-145) 07/09/20 05:48 Potassium 3.7 mmol/l (3.3-5.1) 07/09/20 05:48 Chloride 107 mmol/L (96-108) 07/09/20 05:48 Carbon Dioxide 25 mmol/L (22-29) 07/09/20 05:48 Anion Gap 12 (-20) 07/09/20 05:48 BUN 6 mg/dL (9-16) L 07/09/20 05:48 Creatinine 0.63 mg/dL (0.5-1.4) 07/09/20 05:48 Estim Creat Clear Calc 164.7 07/09/20 05:48 Estimated GFR > 60 07/09/20 05:48 Random Glucose 108 mg/dL (60-115) 07/09/20 05:48 Lactic Acid 1.0 mmol/L (0.5-2.0) 07/06/20 18:58 Calcium 8.4 mg/dL (8.4-10.2) 07/09/20 05:48 Magnesium 2.1 mg/dL (1.6-2.6) 07/07/20 05:23 Total Bilirubin 0.3 mg/dL (0.0-1.0) 07/06/20 18:58 AST 30 U/L (5-31) 07/06/20 18:58 ALT 43 U/L (0-31) H 07/06/20 18:58 Alkaline Phosphatase 88 U/L (39-117) 07/06/20 18:58 Total Protein 7.0 g/dL (6.5-8.0) 07/06/20 18:58 Albumin 3.5 g/dL (3.5-5.0) 07/06/20 18:58 Urine Color YELLOW 07/06/20 21:16 Urine Appearance CLEAR 07/06/20 21:16 Urine pH 6.0 (5.0-8.0) 07/06/20 21:16 Ur Specific [place] >= 1.030 (1.005-1.025) H 07/06/20 21:16 Urine Protein NEG MG/DL (NEG-TRACE) 07/06/20 21:16 Urine Glucose (UA) NEG MG/DL (NEG) 07/06/20 21:16 Urine Ketones NEG MG/DL (NEG) 07/06/20 21:16 Urine Blood 2+ (NEG) H 07/06/20 21:16 Urine Nitrite NEG (NEG) 07/06/20 21:16 Ur Leukocyte Esterase NEG (NEG) 07/06/20 21:16 Urine RBC 15-29 /HPF (0) H 07/06/20 21:16 Urine WBC 0 /HPF (0-4) 07/06/20 21:16 Ur Squamous Epith Cells 1+ /LPF 07/06/20 21:16 Urine Bacteria NONE /LPF 07/06/20 21:16 Vancomycin Trough 4.9 mcg/mL (10.0-20.0) L 07/07/20 21:06 COVID-19 (LISANDRO) Negative (Negative) 07/06/20 19:10 COVID-19 Clin Com See Note 07/06/20 19:10 Preliminary micro results at discharge 07/06/20 19:01 Blood Culture - Preliminary Blood - Venous No growth after 48 hours. 07/06/20 19:01 Blood Culture - Preliminary Blood - Venous No growth after 48 hours. Discharge Plan Discharge Patient Disposition: Home, Self-Care Referrals: Physician,Unknown [Primary Care Provider] - Discharge Medications: New betamethasone, augmented 0.05 % Cream 1 appl topical BID 10 Days RF: 0 clotrimazole 1 % Cream 1 appl topical BID 10 Days RF: 0 clindamycin HCl 150 mg capsule 450 mg PO TID Qty: 63 RF: 0 Continued aripiprazole 10 mg Tablet 10 mg DAILY RF: 0 Discharge Orders: Discharge Order (Routine); Ordered 07/09/20 Ordered By: Maria R Kay Diet: advance to usual diet Activity on Discharge: As tolerated Discharge Date/Time: 07/09/20 11:37 Visit Report Forms: Patient Portal Discharge page Care Plan Goals: Read below Health Concerns: Read below Plan of Treatment: You were admitted to the hospital for evaluation of bilateral lower extremities erythema and tenderness. Ultrasound was negative for any clots. Your treated with IV antibiotics of clindamycin with good response over the course of treatment evaluated by infectious disease specialist meanwhile. Continue clindamycin 450 mg 3 times a day for the next week Continue local creams for lower extremity To follow-up with podiatry as outpatient Please come back to the hospital for any abdominal pain, fever and diarrhea.
== END 2020-07-09 11:37 | disposition home or self-care (01) | DRG 603 ==
LOC: HO.ED 19:37 → HO.S3 21:24
PROVIDERS: Nurse Practitioner Primary Care; Admitting Provider Internal Medicine; Emergency Provider Emergency Medicine; Visit Provider Student in an Organized Health Care Education/Training Program
DX: L03.116 Cellulitis of left lower limb (principal); Z68.43 Body mass index [BMI] 50.0-59.9, adult; L03.115 Cellulitis of right lower limb; I87.8 Other specified disorders of veins; E66.01 Morbid (severe) obesity due to excess calories; F31.9 Bipolar disorder, unspecified; Z20.828 Contact with and (suspected) exposure to other viral communicable diseases; B35.3 Tinea pedis; F17.210 Nicotine dependence, cigarettes, uncomplicated; Z71.6 Tobacco abuse counseling; Z88.2 Allergy status to sulfonamides; Z79.899 Other long term (current) drug therapy
CPT/HCPCS: 36415; 80048; 80053; 80202; 81001; 83605; 83735; 85025; 85027; 87040; 87635; 93970; 96365; 96366; 96367; 99285; J1650; J1940; J2543; J3370

== ENCOUNTER 2020-08-31 17:20 | Emergency (ER) | payer MEDICARE, SELFPAY ==
[2020-08-31 17:47] VITALS: BP 150/84; PULSE 109; RESP 18; TEMP 36.1; O2SAT 96; BMI 55.7
== END 2020-08-31 19:44 | disposition left against medical advice (07) ==
PROVIDERS: Emergency Provider Emergency Medicine
DX: M79.606 Pain in leg, unspecified (principal)
CPT/HCPCS: 99281; 99282

== ENCOUNTER 2020-12-11 15:01 | Emergency (ER) | payer MEDICARE, SELFPAY ==
--- NOTE | ~2020-12-11 | XR_ITS ---
EXAMINATION: XR TIBIA AND FIBULA, LEFT CLINICAL INFORMATION: Skin infection with question of osteomyelitis COMPARISON: None TECHNIQUE: AP and lateral views of the left tibia and fibula were obtained. FINDINGS: There is soft tissue swelling in the subcutaneous tissues most marked anteriorly. Degenerative changes are present in the visualized knee. No bony destruction is seen to suggest osteomyelitis XR/XR tibia fibula LT 2V IMPRESSION: Degenerative changes in the knee. No evidence of osteomyelitis
--- NOTE | ~2020-12-11 | US_ITS ---
EXAMINATION: US VENOUS ULTRASOUND WITH DOPPLER LOWER EXTREMITY, LEFT CLINICAL INFORMATION: Left lower extremity swelling COMPARISON: Multiple prior DVT studies the most recent of which was 07/06/2020 TECHNIQUE: Ultrasound of the deep veins is performed from the hip to the calf with compression sonography and color and pulse Doppler assessment. Spectral analysis with color-flow imaging is performed. FINDINGS: There is normal venous compression and respiratory variation and augmented flow. The visualized common femoral vein, superficial femoral vein, profunda femoral vein, popliteal vein, and visualized tibial vessels show no evidence of deep venous thrombosis. The peroneal veins are not seen. There is no significant popliteal fossa cyst. If the patient's symptoms persist, followup ultrasound in 5 days 7 days might be of value to exclude proximal propagation from a non-visualized calf vein. US/US venous duplex LE LT IMPRESSION: No DVT demonstrated in the left lower extremity.
[2020-12-11 15:30] VITALS: BP 155/91; PULSE 103; RESP 18; TEMP 36.3; O2SAT 93; BMI 53.8
[2020-12-11 16:11] VITALS: BP 117/62; PULSE 90; RESP 14; O2SAT 95
--- NOTE | 2020-12-11 16:38 | ED.EXTPRO ---
HPI - Extremity Problem General Chief complaint: Extremity Problem Stated complaint: bilateral leg pain Time Seen by Provider: 12/11/20 16:30 History of Present Illness HPI Narrative: Patient complains of left leg redness and swelling worse over past several days similar to prior cellulitis She also complains of anterior right thigh when she stood up and felt a pop and now she has pain with walking in the right upper anterior thigh No fever no chills no dizziness no weakness no chest pain no shortness of breath Related Data Home Medications Medication Instructions Recorded Confirmed amitriptyline 75 mg tablet 75 mg PO DAILY 05/11/20 07/08/20 sertraline 100 mg tablet 100 mg PO DAILY 05/11/20 07/08/20 aripiprazole 10 mg DAILY 07/08/20 07/08/20 Previous Rx's Medication Instructions Recorded betamethasone, augmented 1 appl TOPICAL BID 10 Days g 07/09/20 clindamycin HCl 450 mg PO TID #63 cap 07/09/20 clotrimazole 1 appl TOPICAL BID 10 Days g 07/09/20 cephalexin 500 mg PO QID 7 Days #28 tab 12/11/20 doxycycline hyclate 100 mg PO BID 7 Days #14 cap 12/11/20 walker #1 ea 12/11/20 Allergies Allergy/AdvReac Type Severity Reaction Status Date / Time latex [LATEX] Allergy Unknown HIVES Verified 12/11/20 15:30 Sulfa (Sulfonamide Allergy Unknown HIVES Verified 12/11/20 15:30 Antibiotics) [SULFA (SULFONAMIDE ANTIBIOTICS)] LATEX Allergy Unknown hives Uncoded 07/31/15 00:00 latex Allergy Unknown Unknown Uncoded 08/31/20 17:47 sulfa Allergy Unknown hives Uncoded 08/31/20 17:47 Review of Systems Review of Systems: Positive for left leg redness and swelling, also right anterior thigh pain negatives no fever no chills no dizziness no weakness no fainting no feeling faint no headache no neck pain no chest pain no shortness of breath no pain with deep breath no abdominal pain no nausea vomiting no dysuria no numbness weakness or tingling Yes all other systems are reviewed and are negative PMFSH Past Medical History Source: nursing notes reviewed Medical History Bipolar 1 disorder Surgical History History of elbow surgery History of foot surgery History of tubal ligation History of umbilical hernia repair Social History Social History Household Members: Spouse Housing: Apartment Do you presently have visiting nurse or other home services: No Alcohol intake: never Cigarette Packs Per Day: 0.5 Cigarettes Per Day: 10.0 Years Smoked: 20 Second Hand Smoke Exposure: Yes service: No Current occupational status: unemployed Current occupation: right handed Physical Exam Vital Signs: Vital Signs: Last Vital Signs Temp 97.4 F 12/11/20 15:30 Pulse 90 12/11/20 16:11 Resp 14 12/11/20 16:11 BP 117/62 12/11/20 16:11 Pulse Ox 95 12/11/20 16:11 Body Mass Index 53.8 General appearance is no acute distress Head is normocephalic atraumatic Neck is supple Respiratory no distress Chest is clear to auscultation bilateral with symmetric equal breath sounds, no pleuritic pain, no chest wall tenderness Abdomen is soft and nontender Heart no murmur Extremities the right thigh does have some anterior tenderness over distal quadriceps, neurovascular intact distal and skin normal without ecchymosis redness or rash or wound Left leg had pretibial redness tenderness warmth and swelling which includes the lower leg area it is neurovascular intact distal ankle and knee have full range of motion and neurovascular intact distal Neuro no gross motor sensory deficit Course Course Course Narrative: Patient with likely muscle strain in the right thigh as well as cellulitis in the left lower leg Patient had x-ray which showed no evidence of osteomyelitis of the left lower leg and an ultrasound was done as well which ruled out DVT, patient is not septic or unwell appearing and is discharged home for trial of oral antibiotics Discharge Plan Discharge Clinical Impression: Cellulitis of left leg, Muscle strain of right thigh Patient Disposition: Home, Self-Care Additional Instructions: Ultrasound did not show any blood clot X-ray did not show any deep bone infection We will try outpatient antibiotics Return either to her doctor's office or to this emergency room in 2-3 days for recheck Return any time for spreading redness, worse pain and swelling, fever, any worse condition or any concerns any sign of worsening infection Prescriptions: New cephalexin 500 mg tablet 500 mg PO QID 7 Days Qty: 28 RF: 0 doxycycline hyclate 100 mg capsule 100 mg PO BID 7 Days Qty: 14 RF: 0 (DME) sylvester Misc See Rx Instructions .ROUTE .MEDSUPPLY Qty: 1 RF: 0 No Action aripiprazole 10 mg Tablet 10 mg DAILY RF: 0 betamethasone, augmented 0.05 % Cream 1 appl topical BID 10 Days RF: 0 clotrimazole 1 % Cream 1 appl topical BID 10 Days RF: 0 clindamycin HCl 150 mg capsule 450 mg PO TID Qty: 63 RF: 0 Interventions: ED Discharge Assessment Last Done: 12/11/20 18:17 Discharge Date/Time: 12/11/20 18:20
[2020-12-11] MEDS: cephALEXin 500 MG CAPSULE PO (17:23)
== END 2020-12-11 18:20 | disposition home or self-care (01) ==
PROVIDERS: Emergency Provider Emergency Medicine Emergency Medical Services
DX: L03.116 Cellulitis of left lower limb (principal); M79.605 Pain in left leg; M79.604 Pain in right leg; R60.0 Localized edema; Z79.899 Other long term (current) drug therapy; F17.210 Nicotine dependence, cigarettes, uncomplicated; Z71.6 Tobacco abuse counseling
CPT/HCPCS: 73590; 93971; 99284

== ENCOUNTER 2021-01-15 11:21 | Emergency (ER) | payer MEDICARE, SELFPAY ==
[2021-01-15 11:37] VITALS: BP 173/82; PULSE 71; RESP 18; TEMP 36.6; O2SAT 96; BMI 52.4
== END 2021-01-15 14:21 | disposition left against medical advice (07) ==
PROVIDERS: Emergency Provider Emergency Medicine
DX: R10.9 Unspecified abdominal pain (principal)
CPT/HCPCS: 99281; 99282

== ENCOUNTER 2023-09-20 19:51 | Emergency (ER) | payer OTHER, SELFPAY ==
--- NOTE | 2023-09-20 | ECG_ITS ---
Test Reason : OVERDOSE Blood Pressure : / mmHG Vent. Rate : 084 BPM Atrial Rate : 084 BPM P-R Int : 192 ms QRS Dur : 098 ms QT Int : 388 ms P-R-T Axes : 071 018 060 degrees QTc Int : 458 ms Normal sinus rhythm Normal ECG When compared with ECG of 09-NOV-2019 16:26, No significant change was found Referred By: Generic ED Physician Electronically Signed By:FARIBA PRINCE MD
[2023-09-20 20:00] VITALS: BP 115/64; BP 148/88; PULSE 91; PULSE 98; RESP 19; TEMP 36.8; O2SAT 95; O2SAT 98; BMI 59.9
[2023-09-20 20:19] LABS: MANUAL DIFF FLAG NO
[2023-09-20 20:20] LABS: Basophils Absolute Auto 0.1 X10*3/uL (0.0-0.2); Basophils Percent Auto 0.6 % (0-2); Eosinophils Absolute Auto 0.1 X10*3/uL (0.0-0.4); Eosinophils Percent Auto 0.9 % (0-4); Hematocrit 39.3 % (37.0-47.0); Hemoglobin 12.3 g/dl (12.0-16.0); Imm Gran Abs Auto 0.02 X10*3/uL (0.00-0.03); Imm Gran Pct Auto 0.2 % (0.0-0.4); Lymphocytes Absolute Auto 1.4 X10*3/uL (1.2-4.9); Lymphocytes Percent Auto 16.5 % (20-40); Mean Corpuscular HGB Conc 31.3 g/dl (31.0-35.0); Mean Corpuscular Hemoglobin 28.9 pg (27.0-33.0); Mean Corpuscular Volume 92.5 fL (80.0-98.0); Mean Platelet Volume 9.1 fL (9.4-12.3); Monocytes Absolute Auto 0.5 X10*3/uL (0.1-1.2); Monocytes Percent Auto 5.4 % (2-11); Neutrophils Absolute Auto 6.5 x10*3/uL (2.0-8.3); Neutrophils Percent Auto 76.4 % (45-73); Platelet Count 226 X10*3/uL (160-400); Red Blood Count 4.25 X10*6/uL (4.20-5.50); Red Cell Distribution Width 14.2 % (11.0-16.0); White Blood Count 8.5 X10*3/uL (4.8-10.8)
[2023-09-20 20:36] LABS: Alanine Aminotransferase 33 U/L (0-31); Albumin Level 3.7 g/dL (3.5-5.0); Alkaline Phosphatase 111 U/L (39-117); Anion Gap 12 (12-20); Aspartate Amino Transferase 21 U/L (5-31); Bilirubin Total 0.2 mg/dL (0.0-1.0); Blood Urea Nitrogen 16 mg/dL (9-16); Calcium 8.8 mg/dL (8.4-10.2); Carbon Dioxide 27 mmol/L (22-29); Chloride 107 mmol/L (96-108); Creatinine Clr Calc Pharmacy 79.8; Estimated Glomerular Filt Rate 41; Glucose Random 139 mg/dL (60-115); Sodium 142 mmol/L (135-145); Total Protein 7.8 g/dL (6.5-8.0)
--- NOTE | 2023-09-20 21:07 | ED.AMS ---
HPI - Altered Mental Status General Chief Complaint: Overdose Stated Complaint: from SNF, possible OD on administered meds Time Seen by Provider: 09/20/23 21:06 Source: patient Mode of arrival: EMS Limitations: no limitations History of Present Illness HPI narrative: 48-year-old female history of bipolar 1, PTSD, insomnia, OCD, right leg osteomyelitis status post [id number] amputation 8 months prior brought to emergency department for evaluation of altered mental status, pinpoint pupils, reversed with Narcan. Patient states she is at the [facility] and she has been there for at least 8 months since her [id number] amputation. Patient states that she was given a cup full of her medicines and something to drink and then does not remember what happened after that. Apparently the patient was unresponsive and was noted to have pinpoint pupils and was given 2 mg of Narcan which reversed her symptoms. Patient has been here in the emergency department for approximately 1 hour and 30 minutes and has had no complaints since being here. She states that she was not ill in any way prior to receiving her medications. The patient does take oxycodone 15 mg tablets for pain and a benzodiazepine for her anxiety. Related Data Home Medications Medication Instructions Recorded Confirmed amitriptyline 75 mg tablet 75 mg PO DAILY 05/11/20 07/08/20 sertraline 100 mg tablet 100 mg PO DAILY 05/11/20 07/08/20 aripiprazole 10 mg tablet 10 mg DAILY 07/08/20 07/08/20 Previous Rx's Medication Instructions Recorded betamethasone, augmented 0.05 % 1 appl topical BID 10 days 07/09/20 topical cream clindamycin HCl 150 mg capsule 450 mg (3 x 150 mg) PO TID #63 caps 07/09/20 clotrimazole 1 % topical cream 1 appl topical BID 10 days 07/09/20 cephalexin 500 mg tablet 500 mg PO QID 7 days #28 tabs 12/11/20 doxycycline hyclate 100 mg capsule 100 mg PO BID 7 days #14 caps 12/11/20 walker #1 ea 12/11/20 Allergies Allergy/AdvReac Type Severity Reaction Status Date / Time latex [LATEX] Allergy Unknown HIVES Verified 09/20/23 20:00 Sulfa (Sulfonamide Allergy Unknown HIVES Verified 09/20/23 20:00 Antibiotics) [SULFA (SULFONAMIDE ANTIBIOTICS)] LATEX Allergy Unknown hives Uncoded 09/20/23 20:00 latex Allergy Unknown Unknown Uncoded 09/20/23 20:00 sulfa Allergy Unknown hives Uncoded 09/20/23 20:00 Review of Systems Review of Systems: Yes all other systems are reviewed and are negative [facility] Past Medical History [facility] Narrative: Social history: She is currently residing at the [facility]. She does smoke cigarettes. She denies alcohol and drug use. Medical History Chronic venous stasis dermatitis Bipolar 1 disorder Surgical History History of umbilical hernia repair History of foot surgery History of elbow surgery History of tubal ligation Social History Social History Household Members: Spouse Housing: Apartment Do you presently have visiting nurse or other home services: No Alcohol intake: never Cigarette Packs Per Day: 0.5 Cigarettes Per Day: 10.0 Years Smoked: 20 Smoked in Last 30 Days: Yes Second Hand Smoke Exposure: Yes Use of substances other than those prescribed or required for medical reasons: No Advance Directives: No Advance Directives Information Provided: No Patient : No service: No Current occupational status: unemployed Current occupation: right handed Physical Exam ED Vital Signs: Vital Signs - 24 hr 09/20/23 20:00 09/20/23 22:26 Temperature 98.2 F 98.5 F Pulse Rate 91 95 Respiratory Rate 19 13 Blood Pressure 115/64 114/42 L Pulse Oximetry 95 95 Oxygen Delivery Method Room Air Room Air BMI result Body Mass Index 59.9 Vital signs were normal Exam: General: Awake, alert in no distress, elevated weight 168.4 kg, elevated BMI 59.9. Very pleasant and cooperative, answers all questions appropriately, does not appear to be altered in any way Head: Normocephalic, atraumatic EENT: PERRL, Lids normal, sclera normal, conjunctiva normal, nose normal , ears normal, throat without erythema or exudates Neck: Supple, no adenopathy Lung: breath sounds symmetric, no wheezing, rales or rhonchi Chest: symmetric movement, nontender Heart: regular rate and rhythm, normal S1, S2 no murmurs or rubs Abdomen: soft, non-tender, nondistended, normal bowel sounds Back: no vertebral tenderness, no CVAT Extremities: no deformities, patient has a right leg [id number] amputation and her prosthesis is on Neuro: Awake, alert, oriented, normal speech, cranial nerves intact, moves all extremities symmetrically Psych: Pleasant, cooperative Medical Decision Making Medical Decision Making [facility] Narrative: 48-year-old female history of bipolar 1, PTSD, insomnia, OCD, right leg osteomyelitis status post [id number] amputation 8 months prior brought, currently in a rehab facility who was found to be altered with pinpoint pupils after receiving her medications, symptoms were worse with Narcan 2 mg IV. Patient has been in the emergency department for approximately 1-1/2 hours, she is awake and alert and is in no distress. Patient is taking oxycodone 15 mg and a benzodiazepine for her anxiety. Vital signs were normal. Physical examination was unremarkable. Differential diagnosis: ?Includes but is not limited to unintentional opiate overdose, illicit opiate overdose, anemia, electrolyte abnormality, seizure, stroke Following evaluation was ordered: CBC, CMP, urinalysis, drug screen urine Patient was treated with the following: site monitor, O2 saturation monitor, Tylenol 975 mg orally for headache Course: 22:49 My interpretation patient's laboratory evaluation is as follows: CBC was normal. CMP revealed an elevated glucose of 139 an elevated AST of 33 otherwise was unremarkable. Urine drug screen was positive for opiates and fentanyl. I did discuss this with the patient and the patient denies taking any medications besides the ones she was given by her care facility. I did tell her that the tox screen is not 100% accurate and that there are prescription medications that are not fentanyl that can give a false positive fentanyl screen. Our tox screen does not test for oxycodone. The patient has been observed in the emergency department for 3 hours and has had no further episodes of altered mental status therefore I think that is safe to discharge her back to her care facility. I did discuss with the patient the dangers of taking any pill that is not prescribed since almost all illicit pills have fentanyl in them and 1 pill can cause an overdose . Admission/Observation Consideration of admission/observation: Escalation of care including admission/observation considered Lab Data [facility] Lab Attestation statement: I reviewed the patient's lab results. 09/20/23 20:14 09/20/23 20:14 Labs: Lab Results 09/20/23 09/20/23 Range/Units 20:14 22:23 WBC 8.5 (4.8-10.8) X10*3/uL RBC 4.25 (4.20-5.50) X10*6/uL Hgb 12.3 (12.0-16.0) g/dl Hct 39.3 (37.0-47.0) % MCV 92.5 (80.0-98.0) fL MCH 28.9 (27.0-33.0) pg MCHC 31.3 (31.0-35.0) g/dl RDW 14.2 (11.0-16.0) % Plt Count 226 (160-400) X10*3/uL MPV 9.1 L (9.4-12.3) fL Immature Gran % (Auto) 0.2 (0.0-0.4) % Neut % (Auto) 76.4 H (45-73) % Lymph % (Auto) 16.5 L (20-40) % [place] % (Auto) 5.4 (2-11) % Eos % (Auto) 0.9 (0-4) % Baso % (Auto) 0.6 (0-2) % Lymph # (Auto) 1.4 (1.2-4.9) X10*3/uL [place] # (Auto) 0.5 (0.1-1.2) X10*3/uL Eos # (Auto) 0.1 (0.0-0.4) X10*3/uL Baso # (Auto) 0.1 (0.0-0.2) X10*3/uL Abs Immat Gran (auto) 0.02 (0.00-0.03) X10*3/uL Absolute Neuts (auto) 6.5 (2.0-8.3) x10*3/uL Absolute Nucleated RBC 0.000 (0.0-0.012) X10*3/uL Nucleated RBC % (auto) 0.0 (0.0-0.2) /100WBC Sodium 142 (135-145) mmol/L Potassium 4.0 (3.3-5.1) mmol/L Chloride 107 (96-108) mmol/L Carbon Dioxide 27 (22-29) mmol/L Anion Gap 12 (12-20) BUN 16 (9-16) mg/dL Creatinine 1.37 (0.5-1.4) mg/dL Estim Creat Clear Calc 79.8 Estimated GFR 41 Random Glucose 139 H (60-115) mg/dL Calcium 8.8 (8.4-10.2) mg/dL Total Bilirubin 0.2 (0.0-1.0) mg/dL AST 21 (5-31) U/L ALT 33 H (0-31) U/L Alkaline Phosphatase 111 (39-117) U/L Total Protein 7.8 (6.5-8.0) g/dL Albumin 3.7 (3.5-5.0) g/dL Urine Color Yellow Urine Appearance Cloudy Urine pH 5.5 (5.0-9.0) Ur Specific [place] 1.020 (1.005-1.025) Urine Protein 30 (1+) H (Neg-Trace) mg/dL Urine Glucose (UA) Negative (Negative) mg/dL Urine Ketones Negative (Negative) mg/dL Urine Blood Large (3+) H (Negative) Urine Nitrite Negative (Negative) Ur Leukocyte Esterase Moderate (2+) H (Negative) Urine RBC >20 H (0-2) /HPF Urine WBC >50 H (0-5) /HPF Ur Squamous Epith Cells 0-2 (0-2) /HPF Urine Bacteria 1+ (None Seen) Hyaline Casts 11-20 (0-2) /LPF Urine Opiates Screen POSITIVE H (Not Detect) Urine Fentanyl Screen POSITIVE H (Not Detect) Ur Barbiturates Screen Not Detected (Not Detect) Ur Phencyclidine Scrn Not Detected (Not Detect) Ur Amphetamines Screen Not Detected (Not Detect) U Benzodiazepines Scrn Not Detected (Not Detect) Urine Cocaine Screen Not Detected (Not Detect) U Marijuana (THC) Screen Not Detected (Not Detect) Independent Interpretation I performed an independent interpretation of an: EKG Interpretation: My independent interpretation patient's 12 EKG done at 20:14 hours is as follows: Normal sinus rhythm with a rate of 84, normal ND interval, QRS duration QTC interval, no ST segment elevation, no ST segment depression, no significant T-wave abnormalities, no PACs, no PVCs-this is a normal EKG. Discharge Plan Discharge Clinical Impression: Poisoning by other narcotics, accidental (unintentional), initial encounter Patient Disposition: [facility] Transfer Details: Return to [facility] Additional Instructions: Your blood work was unremarkable. Your urine drug screen was positive for opiates and fentanyl. Our tox screen does not test for oxycodone. Our tox screen is not 100% accurate and there are prescription medications that can cross react with our test and give false positive fentanyl results. It is important not to ever take any medications that are not prescribed by your providers. Do not ever take any medications from friends or family members. Any medication that anybody gives you can look like a real prescription medicine but almost all illicit drugs contain fentanyl and 1 pill can cause overdose and . You were observed in the emergency department for at least 3 hours and you had no recurrence of your change in mental status therefore we are discharging you back to your care facility. Follow-up with your doctor in 2 days. Please return to the emergency department if your symptoms get worse or if you develop any symptoms that are concerning to you. Prescriptions: No Action aripiprazole 10 mg Tablet 10 mg DAILY betamethasone, augmented 0.05 % Cream 1 appl topical BID 10 Days 0RF Protocol: Apply to: Apply to: legs bid clotrimazole 1 % Cream 1 appl topical BID 10 Days 0RF clindamycin HCl 150 mg capsule 450 mg PO TID Qty: 63 0RF cephalexin 500 mg tablet 500 mg PO QID 7 Days Qty: 28 0RF doxycycline hyclate 100 mg capsule 100 mg PO BID 7 Days Qty: 14 0RF (TOBIAS) [facility] See Rx Instructions .ROUTE .MEDSUPPLY Qty: 1 0RF Rx Instructions: As directed
--- NOTE | 2023-09-20 21:09 | PC.NURSE ---
lat entry- pt biba from [facility] after being medicated by staff with a cup of pills and becoming unresponsive after. upon EMS arrival pt was given 2mg narcan and became responsive. pt reports being unknown what pills had been consumed. staff reports pt had family in room at 2pm and is questioning pt taking pills from family, pt denies drug use. pt alert and oriented upon arrival to ED, pt normal sinus on tele 90-92 bpm and sating 95-98 on room air. pt is a BKA right leg and is the reason pt is in rehab. pt denies si/hi. pt changed into hospital attire, labs obtained and sent to lab.
[2023-09-20 22:26] VITALS: BP 114/42; PULSE 95; RESP 13; TEMP 36.9; O2SAT 95
[2023-09-20 22:31] LABS: Appearance Urine Cloudy; Color Urine Yellow; Glucose Urine UA Negative (Negative); Leukocyte Esterase Urine Moderate (2+) (Negative); Nitrite Urine Negative (Negative); PH 5.5 (5.0-9.0); UMIC TRIGGER UACC YES; Urine Blood Large (3+) (Negative); Urine Ketones Negative (Negative); Urine Protein 30 (1+) mg/dL (Neg-Trace)
[2023-09-20 22:37] LABS: Amphetamine Screen Urine Not Detected (Not Detect); Barbiturates, Urine Not Detected (Not Detect); Benzodiazepines Screen Urine Not Detected (Not Detect); Cannabinoid Screen Urine Not Detected (Not Detect); Cocaine Screen Urine Not Detected (Not Detect); Fentanyl, urine POSITIVE (Not Detect); Opiate Screen Urine POSITIVE (Not Detect); Phencyclidine Screen Urine Not Detected (Not Detect)
[2023-09-20 22:47] LABS: Bacteria Urine 1+ (None Seen); RBC Urine >20 /HPF (0-2); Squamous Epithelial Cell Urine 0-2 /HPF (0-2); UACC Culture Trigger YES; WBC Urine >50 /HPF (0-5)
[2023-09-20] MEDS: Acetaminophen 325 MG TABLET 975 MG PO (23:09)
--- NOTE | 2023-09-20 23:09 | PC.NURSE ---
pt medicated per mar, pt tolerated well with water.
--- NOTE | 2023-09-20 23:18 | PC.NURSE ---
report given to Julia ENCARNACION at [facility].
--- NOTE | 2023-09-21 01:30 | PC.NURSE ---
ems at bedside to transport pt to [facility]
== END 2023-09-21 02:21 ==
PROVIDERS: Emergency Provider Emergency Medicine Emergency Medical Services; PCP Family Medicine
DX: T40.2X1A Poisoning by other opioids, accidental (unintentional), initial encounter (principal); R40.4 Transient alteration of awareness; M86.18 Other acute osteomyelitis, other site; Y92.9 Unspecified place or not applicable; F31.9 Bipolar disorder, unspecified; F41.9 Anxiety disorder, unspecified; F17.210 Nicotine dependence, cigarettes, uncomplicated; Z79.899 Other long term (current) drug therapy
CPT/HCPCS: 36415; 80053; 80307; 81001; 85025; 87086; 93005; 99283; 99285

== ENCOUNTER → 2023-09-20 20:14 | Outpatient (BNV) | payer OTHER, SELFPAY | PROVIDERS: Emergency Provider Emergency Medicine Emergency Medical Services; PCP Family Medicine; Visit Provider Internal Medicine Cardiovascular Disease | DX: T40.691A Poisoning by other narcotics, accidental (unintentional), initial encounter (principal) | CPT/HCPCS: 93010 ==